=== PATIENT | female | born 1960 | race Caucasian/White ===

== ENCOUNTER 2024-01-14 08:36 | Outpatient (CLI) | payer OTHER, SELFPAY ==
[2024-01-14 09:41] LABS: Basophils Absolute Auto 0.1 K/mm3 (0.0-0.1); Basophils Percent Auto 1.7 % (0.2-1.2); Eosinophils Absolute Auto 0.1 K/mm3 (0-0.3); Hemoglobin 13.5 g/dL (12.0-15.0); Lymphocytes Absolute Auto 0.82 K/mm3 (0.9-3.2); Lymphocytes Percent Auto 27.6 % (18.3-44.2); Mean Corpuscular HGB Conc 33.8 g/dl (32-36); Mean Corpuscular Hemoglobin 31.7 pg (26-34); Mean Corpuscular Volume 93.9 fl (80-100); Mean Platelet Volume 9.6 fl (7.4-10.4); Monocytes Absolute Auto 0.3 K/mm3 (0.1-0.6); Monocytes Percent Auto 10.4 % (2.6-8.5); Neutrophils Absolute Auto 1.7 K/mm3 (1.3-6.7); Neutrophils Percent Auto 58.3 % (45.5-73.1); Platelet Count Result 266 k/mm3 (150-375); Red Blood Count 4.26 M/mm3 (4.2-5.4)
[2024-01-14 09:50] LABS: Alanine Aminotransferase 24 U/L (6-35); Albumin Level 4.5 g/dL (3.5-5.1); Alkaline Phosphatase 82 U/L (38-126); Anion Gap 10 mmol/L (4-12); Aspartate Amino Transferase 44 U/L (14-36); Bilirubin,Total 0.3 mg/dL (0.2-1.3); Blood Urea Nitrogen 17 mg/dL (7-17); Calcium 9.2 mg/dL (8.4-10.2); Carbon Dioxide 26 mmol/L (22-30); Chloride 104 mmol/L (98-107); Cholesterol 245 mg/dL (0-200); Estimated Glomerular Filt Rate > 60; Glucose 90 mg/dL (65-110); HDL Direct 76 mg/dL; Potassium 4.9 mmol/L (3.4-5.0); Sodium 140 mmol/L (137-145); Triglycerides 202 mg/dL (<150)
[2024-01-14 10:01] LABS: LDL Cholesterol Direct 117 mg/dL
[2024-01-14 10:06] LABS: Free T4 Free Thyroxine 1.04 ng/mL (0.78-2.19)
== END 2024-01-14 08:37 | disposition home or self-care (01) ==
LOC: ANHLAB 08:39
PROVIDERS: PCP Family Medicine; Visit Provider Family Medicine
DX: E03.9 Hypothyroidism, unspecified (principal); I10 Essential (primary) hypertension; Z13.220 Encounter for screening for lipoid disorders; G47.39 Other sleep apnea
CPT/HCPCS: 36415; 80048; 80061; 80076; 84439; 84443; 85025

== ENCOUNTER 2024-02-09 12:55 | Outpatient (CLI) | payer OTHER, SELFPAY ==
[2024-02-09 13:44] LABS: Alanine Aminotransferase 19 U/L (6-35); Aspartate Amino Transferase 55 U/L (14-36)
[2024-02-09 16:12] LABS: Hepatitis B Surface Antigen Negative (Negative)
[2024-02-09 16:17] LABS: HAV RESULT Negative (Negative); Hepatitis B Core IgM Result Negative (Negative)
[2024-02-09 16:29] LABS: Hepatitis C Virus Antibody Negative (Negative)
== END 2024-02-09 12:56 | disposition home or self-care (01) ==
PROVIDERS: PCP Family Medicine; Visit Provider Physician Assistant Medical
DX: E78.5 Hyperlipidemia, unspecified (principal); B35.1 Tinea unguium; R74.01 Elevation of levels of liver transaminase levels; R79.89 Other specified abnormal findings of blood chemistry
CPT/HCPCS: 36415; 80074; 84450; 84460

== ENCOUNTER 2024-02-10 08:14 | Outpatient (CLI) | payer OTHER, SELFPAY ==
--- NOTE | ~2024-02-10 | US_ITS ---
EXAM: ABDOMEN ULTRASOUND HISTORY: R79.89 - Other specified abnormal findings of blood chemi... COMPARISON: 02/01/2011 FINDINGS: LIVER: The liver demonstrates geographic areas of fatty infiltration. The portal vein is diminutive but patent and demonstrates hepatopedal flow. GALLBLADDER: Surgically absent. BILE DUCTS: Common bile duct measures 8.5mm, not abnormal postcholecystectomy. No intrahepatic biliary ductal dilatation. PANCREAS: Limited evaluation of the pancreas secondary to overlying bowel gas SPLEEN: The spleen is unremarkable in echogenicity and size measuring 7.8cm in longitudinal dimension . RIGHT KIDNEY: 9.8cm in length. No hydronephrosis or bulky renal calculi. Well-circumscribed anechoic avascular foci, consistent with simple cysts for which no further follow- up is needed. LEFT KIDNEY: 9.4cm in length. No hydronephrosis or renal calculi. Well-circumscribed anechoic avascular foci, consistent with simple cysts for which no further follow- up is needed. VASCULATURE : Submitted images including the abdominal aorta are unremarkable The IVC is patent. IMPRESSION: Geographic areas of fatty infiltration within the liver. Simple cysts within the bilateral kidneys for which no further follow-up is needed. Evaluation of the pancreas is limited by overlying bowel gas. Reviewed, dictated and finalized at location A. IMPRESSION: Geographic areas of fatty infiltration within the liver. Simple cysts within the bilateral kidneys for which no further follow-up is nee ded. Evaluation of the pancreas is limited by overlying bowel gas.
== END 2024-02-10 08:15 | disposition home or self-care (01) ==
LOC: MICIMG 08:15
PROVIDERS: PCP Family Medicine; Visit Provider Physician Assistant Medical
DX: R79.89 Other specified abnormal findings of blood chemistry (principal); N28.1 Cyst of kidney, acquired
CPT/HCPCS: 76700

== ENCOUNTER 2024-02-17 10:55 | Outpatient (CLI) | payer OTHER, SELFPAY ==
[2024-02-17 12:01] LABS: Alanine Aminotransferase 19 U/L (6-35); Albumin Level 4.6 g/dL (3.5-5.1); Alkaline Phosphatase 86 U/L (38-126); Aspartate Amino Transferase 44 U/L (14-36); Bilirubin,Total 0.3 mg/dL (0.2-1.3)
== END 2024-02-17 10:56 | disposition home or self-care (01) ==
LOC: ANHLAB 10:56
PROVIDERS: PCP Family Medicine; Visit Provider Nurse Practitioner Adult Health
DX: R74.01 Elevation of levels of liver transaminase levels (principal)
CPT/HCPCS: 36415; 80076

== ENCOUNTER 2024-04-29 12:50 | Emergency (ER) | payer OTHER, SELFPAY ==
[2024-04-29 13:13] VITALS: BP 146/81; PULSE 82; RESP 16; TEMP 36.4; O2SAT 98
--- NOTE | 2024-04-29 13:45 | ED_ITS ---
HPI - URI/Sore Throat General Chief Complaint: Upper Respiratory Infection Stated Complaint: congestion,sore throat,cough Time Seen by Provider: 04/29/24 13:20 Source: patient Mode of arrival: ambulatory Limitations: no limitations History of Present Illness HPI Narrative: Erica is a 63-year-old female patient presenting to the clinic today with complaints of congestion, sore throat, cough, and chest congestion times 5-6 days. She denies any known fever, chills, or body aches. Denies any chest pain or shortness of breath. Has had COVID exposure. MD elicited complaint: sore throat and nasal congestion Related Data Home Medications ?Medication ?Instructions ?Recorded ?Confirmed ?Last Taken ?Type immune glob G 40 gram/400 See Rx Instructions .Route .COMPLEX 09/19/20 02/11/24 Unknown History mL(10%)-gly-IgA ave 46 mcg/mL injection soln (Gamunex-C) rituximab 10 mg/mL 700 mg IV .every 10 weeks 06/17/23 02/11/24 Unknown History concentrate,intravenous Allergies Allergy/AdvReac Type Severity Reaction Status Date / Time No Known Allergies Allergy Verified 02/11/24 08:52 Review of Systems Review of Systems: Pertinent positives per HPI. Patient denies any fever, chills, rash, headache, visual changes, dizziness, shortness of breath, chest pain, palpitations, nausea, vomiting, diarrhea, constipation, abdominal pain, or any urinary issues. [facility] Past Medical History Medical History Fatty liver Onychomycosis Elevated AST (SGOT) Lipoma of left thigh Immune myopathy Sinusitis, acute Viral URI with cough Trigger finger Compartment syndrome Viral upper respiratory infection Mass of left thigh Lipoma of left lower extremity Lateral epicondylitis of right elbow Anxiety disorder, unspecified Essential hypertension Hyperlipidemia, unspecified Hypothyroidism, unspecified Tendon nodule Trigger finger, left ring finger Ulcer of genital labia Bilateral chronic knee pain Surgical History Surgical History H/O rotator cuff surgery H/O: hysterectomy Family History Family History Mother Hypertension Cerebrovascular accident Family history of heart disease in male family member before age 55 Family history of Alzheimer's disease Sibling Family history of throat cancer Family history of thyroid disease Family history of diabetes mellitus in first degree relative Father Family history of Parkinson's disease COPD (chronic obstructive pulmonary disease) Other Diabetes mellitus Family history of elevated blood lipids Social History Social History Smoking status: Never smoker Second hand tobacco smoke exposure: Yes Alcohol intake: current Substance use: never Substance use type: does not use Do You Feel Safe in your Home?: Yes Lack of Transportation: No Lack of Food: Never True Current Housing: I Have Housing Concerned About Future Housing: No Difficulty Paying Gas/Electric Bills: No Difficulty Paying for Meds: No Currently Unemployed: No Education: Associate Degree Difficulty w/ Childcare or Family Care: No Living arrangements: with family Occupation/Education: retired 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 There is no relevant family history pertinent to the patient complaint. Exam Narrative: General: Well-developed, well nourished, in no apparent distress Head: Normocephalic, atraumatic Eyes: Pupils equally round and reactive to light bilaterally, EOM intact, sclera and conjunctive clear, no discharge, lids normal Ears: TMs intact and clear, ear canals clear, no drainage, grossly hearing normal. Nose: Nares patent, clear nasal discharge, no inflammation, no sinus tenderness. Mouth: Oral pharynx without lesions or masses, good dentition, MMM. Postnasal drip Neck: Supple, trachea midline, no enlargement of anterior or posterior cervical nodes, no thyroid masses or goiter palpable. Cardio: Regular rate and rhythm, s1 and s2 normal, no murmur appreciated. Resp: Clear to auscultation bilaterally, no rhonchi, rales, wheezing or rubs Course Course Emergency Course: Portions of this record may have been created with voice recognition software. Level of Care: Express Care Visit Vital Signs Vital signs: Vital Signs Temperature 36.4 C 04/29/24 13:13 Pulse Rate 82 04/29/24 13:13 Respiratory Rate 16 04/29/24 13:13 Blood Pressure 146/81 H 04/29/24 13:13 Pulse Oximetry 98 04/29/24 13:13 Temperature 36.4 C 04/29/24 13:13 Pulse Rate 82 04/29/24 13:13 Respiratory Rate 16 04/29/24 13:13 Blood Pressure 146/81 H 04/29/24 13:13 Pulse Oximetry 98 04/29/24 13:13 Vital signs reviewed MDM - URI/Sore Throat MDM Narrative Medical decision making narrative: At the time of visit patient is resting comfortably on the exam table. Patient appears to be nontoxic. Labs: COVID was positive and influenza testing was negative in the clinic today. Plan: Patient has COVID-19. May take Tessalon Perles for cough. Supportive measures were discussed with the patient and they voiced understanding discharge instructions and agrees to treatment plan. Return precautions reviewed Differential Diagnosis Differential diagnosis: Likely upper respiratory infection, otitis media, sinusitis, viral infection, bronchitis, influenza, pharyngitis and other (COVID) Lab Data Labs: Lab Results 04/29/24 Range/Units 13:49 POC Influenza A Ag Negative (Negative) POC Influenza B Ag Negative (Negative) POC SARS CoV-2 Ag Positive (Negative) Discharge Plan Discharge Clinical Impression: COVID-19 Patient Disposition: Home, Self-Care Condition: Stable Instructions: Antibiotic Form, How to Recover from COVID-19 at Home (ED) Additional Instructions: COVID testing is positive in the clinic today May take DayQuil/NyQuil for cold/flu symptoms. Increase fluids and stay well hydrated Tylenol/motrin for pain/fever Flonase and OTC antihistamines as directed Vicks vapor rub to open sinuses Sinus rinses for congestion Cepacol spray, cough drops, throat lozenges, warm tea with honey/lemon, gargle salt water to soothe throat BRAT diet for diarrhea Clear liquids x 24 hours then advance as tolerated for nausea/vomiting Go to the ED if you develop a worsening in your condition- high fever not controlled by Tylenol or Motrin, dehydration, weakness, lethargy, shortness of breath, or chest pain. Follow up with your PCP in 3-5 days if symptoms persist. Patient Language: Bulgarian Prescriptions: New benzonatate 200 mg capsule 200 mg PO TID 7 Days Qty: 21 0RF No Action Gamunex-C 40 gram/400 mL (10 %) solution See Rx Instructions .ROUTE .COMPLEX Rx Instructions: iv every 6 weeks; meclizine 25 mg tablet 25 mg PO TID PRN (Reason: dizziness) Qty: 30 0RF rituximab 10 mg/mL concentrate 700 mg IV .every 10 weeks estradiol 0.5 mg tablet 0.5 mg PO DAILY Qty: 90 0RF lisinopril 10 mg tablet See Rx Instructions .ROUTE .COMPLEX Qty: 90 3RF Dose Instruction: TAKE ONE TABLET BY MOUTH EVERY DAY Rx Instructions: TAKE ONE TABLET BY MOUTH EVERY DAY verapamil 240 mg tablet extended release 240 mg PO DAILY Qty: 90 1RF lamotrigine 200 mg tablet See Rx Instructions .ROUTE .COMPLEX Qty: 180 1RF Dose Instruction: TAKE 1 TABLET BY MOUTH TWO TIMES A DAY Rx Instructions: TAKE 1 TABLET BY MOUTH TWO TIMES A DAY diclofenac sodium 50 mg tablet,delayed release (DR/EC) See Rx Instructions .ROUTE .COMPLEX Qty: 180 1RF Dose Instruction: TAKE ONE TABLET BY MOUTH TWICE A DAY Rx Instructions: TAKE ONE TABLET BY MOUTH TWICE A DAY levothyroxine 150 mcg tablet 150 mcg PO DAILY Qty: 90 1RF topiramate 25 mg tablet See Rx Instructions .ROUTE .COMPLEX Qty: 180 1RF Dose Instruction: TAKE 1 TABLET BY MOUTH TWO TIMES A DAY Rx Instructions: TAKE 1 TABLET BY MOUTH TWO TIMES A DAY oxycodone 5 mg tablet 5 mg PO Q6H PRN (Reason: pain) Qty: 20 0RF buspirone 10 mg tablet 10 mg PO BID Qty: 60 5RF escitalopram oxalate 20 mg tablet 20 mg PO DAILY Qty: 90 0RF Follow-up/Referrals: Karthik Shah MD [Primary Care Provider] - Time of Disposition: 13:45 Quality NIHSS Nursing Documentation ED NIHSS nursing documentation: reviewed/agree
[2024-04-29 13:51] LABS: EDCOVIDSCREEN Positive (Negative); EDINFLUASCREEN Negative (Negative); EDINFLUBSCREEN Negative (Negative)
== END 2024-04-29 14:00 | disposition home or self-care (01) ==
PROVIDERS: Emergency Provider Nurse Practitioner Family; PCP Family Medicine
DX: U07.1 COVID-19 (principal); I10 Essential (primary) hypertension; E78.5 Hyperlipidemia, unspecified; E03.9 Hypothyroidism, unspecified; K76.0 Fatty (change of) liver, not elsewhere classified
CPT/HCPCS: 87426; 87804; 99213; G0463

== ENCOUNTER 2024-06-17 11:56 | Outpatient (CLI) | payer OTHER, SELFPAY ==
--- NOTE | ~2024-06-17 | XR_ITS ---
EXAMINATION: XR cervical spine min 6V DATE: 06/17/2024 12:42 INDICATION: Radiculopathy, cervical region. TECHNIQUE: 8 views of cervical spine including flexion and extension views were obtained. COMPARISON: Cervical spine radiographs 06/05/2015 FINDINGS: There is 5 degrees dextrocurvature of cervicothoracic spine. There is mild kyphosis of cerv ical spine. Vertebral body heights are normal. Intervertebral disc heights are normal. There is no ab normal motion on flexion or extension. There is multilevel mild facet joint osteoarthritis. On the le ft, there is mild neural foraminal stenosis at C5-C6. No central canal stenosis or prevertebral soft tissue swelling. IMPRESSION: 1. Mild cervical spondylosis. Reviewed, dictated and finalized at location A. LDER PUNCHER
--- OUTSIDE RECORDS SUMMARY | 2024-06-17 12:00 | XMS_ITS | Referral Summary ---
Author Organization [facility] Address [address] [place] [address] Care Team Providers Care Fur Sorter Name Role Phone Karthik Shah MD Primary Care Provider [phone] Source Comments [facility],non-owned Affiliates and Associated Physician Practices is amultiple site organization consisting of ambulatory clinics and hospital sitesin [place], [place], [place] and [place]. This disclosure is being madepursuant to the Care Everywhere program and may not contain all information available regarding this patient. Last updated 18.[facility] Allergies No known active allergies Medications * Be aware that medications may not be up to date on this document. Alwaysverify current medications with the patient. Medication Sig Dispensed Refills Start Date End Date Status topiramate (TOPAMAX) 25 MG tablet Take 25 mg by mouth 2 times daily. Active lamoTRIgine (LAMICTAL) 200 MG tablet Take 200 mg by mouth 2 times daily. Active citalopram (CELEXA) 40 MG tablet Take 40 mg by mouth once daily. Active estradiol (ESTRACE) 0.5 MG tablet Take 0.5 mg by mouth once daily. Active atorvastatin (LIPITOR) 20 MG tablet Take 20 mg by mouth at bedtime. Active SUMAtriptan (IMITREX) 100 MG tablet Take 100 mg by mouth as needed for Migraine. Active thyroid (ARMOUR THYROID) 90 MG tablet Take 90 mg by mouth once daily. Active verapamil CR (CALAN SR) 240 MG tablet Take 240 mg by mouth daily with breakfast. Active Misc. Devices (CRUTCHES) Use as directed. Given in 04/12/2014 Active Additional Information Patient not taking.Reported on 06/12/2019 Immunizations Name Administration Dates Next Due TDAP (7yrs+) 04/12/2014 Social History Tobacco Use Types Packs/Day Years Used Date Smoking Tobacco: Never Smokeless Tobacco: Never Alcohol Use Standard Drinks/Week Comments Not Asked 0 (1 standard drink = 0.6 oz pur e alcohol) Sex and Gender Information Value Date Recorded Sex Assigned at Not on file Gender Identity Not on file Sexual Orientation Not on file Last Filed Vital Signs Vital Sign Reading Time Taken Comments Blood Pressure 128/80 06/12/2019 10:45 AM BRAILLE TRANSCRIBER Pulse 79 06/12/2019 10:45 AM BRAILLE [employer]CRIBER Temperature 37 C (98.6 F) 06/12/2019 10:45 AM BRAILLE [employer]CRIBER Respiratory Rate 16 06/12/2019 10:45 AM [employer]RAILLE TRANSCRIBER Oxygen Saturation 99% 06/12/2019 10:45 AM BRAILLE TRANSCRIBER Inhaled Oxygen Concentration - - Weight 75.8 kg (167 lb) 06/12/2019 10:45 AM BRAILLE [employer]CRIBER Height 154.9 cm (5' 1 ) 06/12/2019 10:45 AM BRAILLE TR[employer]CRIBER Body Mass Index 31.55 06/12/2019 10:45 AM BRAILLE [employer]CRIBER Plan of Treatment Not on file Care Teams Fur Sorter Relationship Specialty Start Date End Date Karthik Shah MD [address] [place] [id number] PCP - General Family Medicine 04/12/14
--- OUTSIDE RECORDS SUMMARY | 2024-06-17 12:00 | XMS_ITS | Referral Summary ---
Author Organization [facility] Address [address] [place] [address] Care Team Providers Care Therapy Director Name Role Phone Yaima Munoz MD Unavailable [phone] Karthik Shah MD Primary Care Provider [phone] Stephanie Rodríguez MD Unavailable [phone] Encounters Date Type Department Care Team Description 06/17/2024 Orders Only [facility] [address] [place] [address] [phone] Halina Burt, SUSAN 06/11/2024 Orders Only [facility] [address] [place] [address] [phone] Joseph Strong, SUSAN 06/09/2024 7:30 AM CHART COLLECTOR Infusion [facility] [address] [place] [address] [phone] Immune myopathy (Primary Dx) 06/08/2024 8:00 AM CHART COLLECTOR Infusion [facility] [address] [place] [address] [phone] Immune myopathy (Primary Dx) 05/24/2024 Orders Only [facility] [address] [place] [address] [phone] Jamaica Glass, SUSAN 05/19/2024 Orders Only [facility] [address] [place] [phone] Jamaica Glass, RN 05/14/2024 Orders Only [facility] Neuro [facility]cle [address] [facility] Advanced Medicine 6th [place] [phone] Yaima Munoz MD 05/14/2024 7:30 AM CHART COLLECTOR Infusion [facility] Out[facility]fusion [facility] [address] [facility] [address] [place] [phone] Immune myopathy (Primary Dx) 05/13/2024 7:30 AM CHART COLLECTOR Infusion [facility] [address] [place] [address] [address] [place] [phone] Immune myopathy (Primary Dx) 05/04/2024 Orders Only [facility] [address] [place] [address] [phone] Jamaica Glass, RN 04/16/2024 8:00 AM CHART COLLECTOR Infusion [facility] [address] [place] [address] [phone] Immune myopathy (Primary Dx) 04/15/2024 7:30 AM CHART COLLECTOR Infusion [facility] [address] [place] [address] [phone] Immune myopathy (Primary Dx) 04/09/2024 11:00 AM CHART COLLECTOR Lab [facility] Advanced [facility] [address] [place] [phone] Immune myopathy; High risk medications (not anticoagulants) long-term use 04/09/2024 9:00 AM CHART COLLECTOR Office Visit [facility] Neuro [facility]cle [address] [facility] Medicine 6th [place] [phone] Yaima Mnuoz MD High risk medications (not anticoagulants) long-term use (Primary Dx); Immune myopathy; Long-term current use of high risk medication other than anticoagulant 04/07/2024 7:30 AM CHART COLLECTOR Infusion [facility] [address] [place] [address] [address] [place] [phone] Immune myopathy (Primary Dx) 03/18/2024 8:00 AM [facility] Infusion [facility] Out[facility]fusion [facility] [address] [facility] [address] [place] [phone] Immune myopathy (Primary Dx) 03/17/2024 8:00 AM [facility] Out[facility]fusion [facility] [address] [facility] [address] [place] [phone] Immune myopathy (Primary Dx) from Last 3 Months Allergies No known active allergies Medications lamoTRIgine (LaMICtal) 200 mg tablet take 1 tablet by oral route 2 times every day 0 0 6 Active levothyroxine (SYNTHROID, LEVOTHROID) 150 mcg tablet take 1 tablet by oral route every day 0 0 6 Active multivitamin tablet tablet take 1 tablet by oral route every day with food 0 0 6 Active topiramate (TOPAMAX) 25 mg tablet take 1 Tablet by oral route 2 times every day in the morning and evening 0 0 6 Active traMADol (ULTRAM) 50 mg tablet take 1 tablet by oral route every 6 hours as needed 0 0 6 Active verapamil SR (CALAN SR) 240 mg CR tablet Take 1 tablet (240 mg total) by mouth Active lisinopril (PRINIVIL,ZESTR IL) 10 mg tablet TK 1 T PO QD 0 9 Active escitalopram (LEXAPRO) 20 mg tablet Take 1 tablet (20 mg total) by mouth daily Active diclofenac sodium (VOLTAREN) 1 % gel 2 Active estradioL (ESTRACE) 0.5 mg tablet 2 Active meclizine (ANTIVERT) 25 mg tablet TAKE 1 TABLET BY MOUTH TWICE DAILY NEEDED FOR DIZZINESS [address] (VOLTAREN) 50 mg EC tablet 2 Active oxyCODONE (ROXICODONE) 5 mg immediate release tablet Take by mouth every 6 (six) hours as needed 3 Active hydrOXYzine (ATARAX) 25 mg tablet Take 1 tablet (25 mg total) by mouth 3 (three) times a day as needed for itching Active dicyclomine (BENTYL) 20 mg tablet Take 1 tablet (20 mg total) by mouth every 6 (six) hours 3 Active busPIRone (BUSPAR) 10 mg tablet Take 1 tablet (10 mg total) by mouth 2 (two) times a day 4 Active Active Problems Problem Noted Date Diagnosed Date Weakness of extremity 06/09/2023 Long-term current use of hig h risk medication other than anticoagulant 08/08/2022 Trigger middle finger of left hand 06/12/2018 Trigger middle finger of right hand 02/06/2018 Trigger finger, acquired 10/24/2017 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 - EMG/nerve conduction studies 2016: mild irritable myopathy based on increased exertional activity in proximal leg muscles and mild myopathic motor units in proximal arm muscles - muscle biopsy of the right deltoid: probable immune myopathy with an area of perifascicular fiber atrophy and mildly increased numbers of large alkaline phosphatase, positive endomysial capillaries. In addition, scattered necrotic or immature muscle fibers were seen. Treatment: Initially IV steroids, on IVIG since July 2016; Rituximab added 05/2023 Sarcoidosis 10/27/2015 Overview (08/08/2016): Sarcoidosis Bipolar affective disorder 10/05/2015 Overview (08/09/2016): Bipolar affective disorder Migraine 10/05/2015 Overview (08/09/2016): Migraine headache Hypothyroidism 10/05/2015 Overview (08/09/2016): Hypothyroidism Fibrositis 10/05/2015 Overview (08/09/2016): Fibromyalgia Immunizations Name Administration Dates Next Due Influenza, Quadrivalent, Spl it, Preservative Free, Intramuscular 03/05/2015 Influenza, Unspecified 03/05/2023 Tdap 04/12/2014 Social History Tobacco Use Types Packs/Day Years Used Date Smoking Tobacco: Never Smokeless Tobacco: Never Tobacco Cessation:Counseling Given: Not Answered Alcohol Use Standard Drinks/Week Comments Yes 1 (1 standard drink = 0.6 oz pur e alcohol) per month PHQ-2 Answer Date Recorded PHQ-2 Total Score (If total score is 3 or more points, staff should administer the PHQ-9) 0 07/26/2020 Hunger Vital Sign Answer Date Recorded Within the past 12 months, y ou worried that your food would run out before you got the money to buy more. Never true 06/09/19 25 Within the past 12 months, t he food you bought just didn't last and you didn't have money to get more. Never true 06/09/2024 Personal Safety Answer Date Recorded Have you ever been in or are you currently in a harmful physical or emotional relationship or is someone making you feel afraid or unsafe? Denies 06/09/2024 Comments No Sex and Gender Information Value Date Recorded Sex Assigned at Not on file Legal Sex Female 2:12 AM CHART COLLECTOR Gender Identity Not on file Sexual Orientation Not on file 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 Not on file Not on file Last Filed Vital Signs Vital Sign Reading Time Taken Comments Blood Pressure 155/80 06/09/2024 11:05 AM CHART COLLECTOR Pulse 60 06/09/2024 11:05 AM CHART COLLECTOR Temperature 36.6 C (97.8 F) 06/09/2024 7:18 AM CHART COLLECTOR Respiratory Rate 18 06/09/2024 7:18 AM CHART COLLECTOR Oxygen Saturation 95% 06/09/2024 11:05 AM CHART COLLECTOR Inhaled Oxygen Concentration - - Weight 80.3 kg (177 lb) 06/09/2024 7:18 AM CHART COLLECTOR Height 157.5 cm (5' 2 ) 05/13/2024 7:27 AM CHART COLLECTOR Body Mass Index 32.37 05/13/2024 7:27 AM CHART COLLECTOR Plan of Treatment Not on file Procedures Procedure Name Priority Date/Time Associated Diagnosis Comments EGFR Routine 04/09/2024 10:23 AM CHART COLLECTOR Immune myopathy High risk medications (not anticoagulants) long-term use DIFFERENTIAL AUTO Routine 04/09/2024 10: 23 AM CHART COLLECTOR Immune myopathy High risk medications (not anticoagulants) long-term use IGM Routine 04/09/2024 10:23 AM CHART COLLECTOR Immune myopathy High risk medications (not anticoagulants) long-term use IGG Routine 04/09/2024 10:23 AM CHART COLLECTOR Immune myopathy High risk medications (not anticoagulants) long-term use IGA Routine 04/09/2024 10:23 AM CHART COLLECTOR Immune myopathy High risk medications (not anticoagulants) long-term use IMMUNE COMPETENCE Routine 04/09/2024 10: 23 AM CHART COLLECTOR Immune myopathy High risk medications (not anticoagulants) long-term use ALDOLASE Routine 04/09/2024 10:23 AM CHART COLLECTOR Immune myopathy High risk medications (not anticoagulants) long-term use CREATINE KINASE (CK), TOTAL Routine 04/09/2024 10:23 AM CHART COLLECTOR Immune myopathy High risk medications (not anticoagulants) long-term use CBC WITH AUTO DIFFERENTIAL Routine 04/09/2024 10:23 AM CHART COLLECTOR Immune myopathy High risk medications (not anticoagulants) long-term use COMPREHENSIVE METABOLIC PANEL Routine 04/09/2024 10:23 AM CHART COLLECTOR Immune myopathy High risk medications (not anticoagulants) long-term use SCREENING MAMMOGRAM BILATERAL W SANJAY Schedule Routine, Read Routine (OP Routine) 06/26/2023 12:39 PM CHART COLLECTOR Screening mammogram, encounter for HEPATITIS PANEL, ACUTE STAT 06/09/2023 10:04 PM CHART COLLECTOR DEXA AXIAL SKELETON BONE DENSITY 1 OR MORE SITES Schedule Routine, Read Routine (OP Routine) 07/22/2018 11:00 AM CDT Encounter for screening for osteoporosis Asymptomatic menopausal state from Last 3 Months or Most Recently Relevant to Health Maintenance Results * eGFR (04/09/2024 10:23 AM CHART COLLECTOR) eGFR 79 >=60 mL/min/1. 73 m2 Comment: Interpretive Data Reference Interval Normal >/= 90 mL/min/1.73m2 Mildly decreased* 60 - 89 mL/min/1.73m2 Mildly to moderately decreased 45 - 59 mL/min/1.73m2 Moderately to severely decreased 30 - 44 mL/min/1.73m2 Severely decreased 15 - 29 mL/min/1.73m2 Kidney Failure < 15 mL/min/1.73m2 *Relative to young adult level Estimated glomerular filtration rate is determined by the 2020 CKD-EPI equation recommended by the National Kidney Foundation (A Unifying Approach to GFR Estimation: Recommendations of the NKF-ASK Task Force on Reassessing the Inclusion of Race in Diagnosing Kidney Disease, JASN 2020). The CKD-EPI equation should not be used for patients with unstable renal function and has not been validated in children and those over 70. Current interpretive data was last reviewed 2021. Blood 04/09/2024 10:2 3 AM CHART COLLECTOR 04/09/2024 11:04 AM CHART COLLECTOR us Yaima Munoz MD LAB BLOOD ORDERABLES Final R esult [facility] Department [place] [address] * (ABNORMAL) Differential, auto (04/09/2024 10:23 AM CHART COLLECTOR) Pathologist [facility] Neutrophil abs 1.8 1.5 - 6.5 K/cumm Imm gran abs 0.0 0.0 - 0.1 K/cumm [facility] Lymphocyte abs 0.7(L) 0.8 - 3.3 K/cumm [facility] Monocyte abs 0.4 0.2 - 0.8 K/cumm [facility] Eosinophil abs 0.0 0.0 - 0.5 K/cumm [facility] Basophil abs 0.0 0.0 - 0.1 K/cumm [facility] Neutrophil pct 61.8 % [facility] Comment: Interpretive Data Percent cell count reference ranges are not reported, since discordance with absolute values may lead to misinterpretation of CBC data. Current Interpretive Data was last revised on 2017. Imm gran pct 0.0 % [facility] Comment: Interpretive Data Percent cell count reference ranges are not reported, since discordance with absolute values may lead to misinterpretation of CBC data. Current Interpretive Data was last revised on 2017. Lymphocyte pct 24.5 % [facility] Comment: Interpretive Data Percent cell count reference ranges are not reported, since discordance with absolute values may lead to misinterpretation of CBC data. Current Interpretive Data was last revised on 2017. Monocyte pct 11.7 % [facility] Comment: Interpretive Data Percent cell count reference ranges are not reported, since discordance with absolute values may lead to misinterpretation of CBC data. Current Interpretive Data was last revised on 2017. Eosinophil pct 0.7 % [facility] Comment: Interpretive Data Percent cell count reference ranges are not reported, since discordance with absolute values may lead to misinterpretation of CBC data. Current Interpretive Data was last revised on 2017. Basophil pct 1.3 % [facility] Comment: Interpretive Data Percent cell count reference ranges are not reported, since discordance with absolute values may lead to misinterpretation of CBC data. Current Interpretive Data was last revised on 2017. Blood 04/09/2024 10:2 3 AM CHART COLLECTOR 04/09/2024 11:04 AM CHART COLLECTOR us Yaima Munoz MD LAB BLOOD ORDERABLES Final R esult [facility] Department [place] [address] * (ABNORMAL) Immune competence (04/09/2024 10:23 AM CHART COLLECTOR) CD3 pct 89(H) 60 - 88 % CD3 Absolute 601(L) 661 - 1,963 cells/mcL [facility] CD4 pct 57 31 - 64 % [facility] CD4 Absolute 380 365 - 1,294 cells/mcL [facility] CD8 pct 32 12 - 40 % [facility] CD8 Absolute 211 187 - 781 cells/mcL [facility] CD19 pct 0(L) 6 - 25 % [facility] CD19 Absolute <25(L) 86 - 488 cells/mcL [facility] Comment:Repeated and verifie d. [id number] pct 10 5 - 25 % [facility] [id number] Absolute 68(L) 76 - 467 cells/mcL [facility] CD4/CD8 ratio 1.8 0.9 - 4.4 [facility] Blood 04/09/2024 10:2 3 AM CHART COLLECTOR 04/09/2024 11:01 AM CHART COLLECTOR Yaima Munoz MD LAB BLOOD ORDERABLES Final R esult [facility] Department [place] [address] * (ABNORMAL) CBC with auto differential (04/09/2024 10:23 AM CHART COLLECTOR) [facility] WBC 3.0(L) 3.8 - 9.9 K/cumm Hgb 12.6 11.9 - 15.5 g/dL [facility] Hct 38.5 35.6 - 45.5 % [facility] Plt 268 150 - 400 K/cumm [facility] MPV 9.7 9.1 - 12.3 fL [facility] RBC 4.15 3.90 - 5.20 M/cumm [facility] MCV 92.8 81.3 - 96.4 fL [facility] MCH 30.4 27.1 - 33.3 pg [facility] MCHC 32.7 32.3 - 35.7 g/dL [facility] RDW CV 13.7 11.1 - 14.9 % [facility] RDW SD 46.5 35.7 - 48.1 fL [facility] NRBC abs 0.00 0.00 - 0.01 K/cumm [facility] Blood 04/09/2024 10:2 3 AM CHART COLLECTOR 04/09/2024 11:04 AM CHART COLLECTOR Yaima Munoz MD LAB BLOOD ORDERABLES Final R esult Performing Organization Address City/[facility] Co de Phone Number [facility] [place] [address] * Aldolase (04/09/2024 10:23 AM CHART COLLECTOR) Pathologist [facility] Aldolase 4.5 0.1 - 8.0 Units/L Blood 04/09/2024 10:2 3 AM CHART COLLECTOR 04/09/2024 11:04 AM CHART COLLECTOR Yaima Munoz MD LAB BLOOD ORDERABLES Final R esult Performing Organization Address [facility] [employer] de Phone Number [facility] [place] [address] * IgA (04/09/2024 10:23 AM CHART COLLECTOR) Pathologist [facility] Immunoglobulin A 81 70 - 400 mg/dL Blood 04/09/2024 10:2 3 AM CHART COLLECTOR 04/09/2024 11:04 AM CHART COLLECTOR Yaima Munoz MD LAB BLOOD ORDERABLES Final R esult Performing Organization Address [facility] de Phone Number [facility] [place] [address] * IgM (04/09/2024 10:23 AM CHART COLLECTOR) Pathologist [facility] Immunoglobulin M 63 40 - 230 mg/dL Blood 04/09/2024 10:2 3 AM CHART COLLECTOR 04/09/2024 11:04 AM CHART COLLECTOR Yaima Munoz MD LAB BLOOD ORDERABLES Final R esult Performing Organization Address [facility] de Phone Number [facility] [place] [address] * IgG (04/09/2024 10:23 AM CHART COLLECTOR) Pathologist [facility] Immunoglobulin G 1,511 700 - 1,600 mg/dL Blood 04/09/2024 10:2 3 AM CHART COLLECTOR 04/09/2024 11:04 AM CHART COLLECTOR us Yaima Munoz MD LAB BLOOD ORDERABLES Final R esult Performing Organization Address [facility] de Phone Number [facility] [place] [address] * Creatine kinase (CK), total (04/09/2024 10:23 AM CHART COLLECTOR) [facility] CK 153 30 - 200 Units/L Blood 04/09/2024 10:2 3 AM CHART COLLECTOR 04/09/2024 11:04 AM CHART COLLECTOR Yaima Munoz MD LAB BLOOD ORDERABLES Final R esult Performing Organization Address [facility] de Phone Number [facility] [place] [address] * (ABNORMAL) Comprehensive metabolic panel (04/09/2024 10:23 AM CHART COLLECTOR) [facility] Sodium 143 135 - 145 mmol/L Potassium, pl 5.0(H) 3.3 - 4.9 mmol/L [facility] Chloride 109 97 - 110 mmol/L [facility] CO2 27 22 - 32 mmol/L [facility] Anion gap 7 2 - 15 mmol/L [facility] BUN 19 6 - 25 mg/dL [facility] Creatinine 0.82 0.60 - 1.10 mg/dL [facility] Glucose 94 70 - 199 mg/dL [facility] Comment: Interpretive Data Fasting glucose >/= 126 mg/dl is diagnostic for diabetes. Fasting is defined as no caloric intake for at least 8 hours. Fasting glucose between 100 mg/dl to 125 mg/dl is diagnostic of prediabetes. In a patient with classic symptoms of hyperglycemia or hyperglycemic crisis, a random glucose >/= 200 mg/dl is diagnostic for diabetes. In the absence of unequivocal hyperglycemia, results should be confirmed by repeat testing. The classification and Diagnosis of Diabetes Diabetes Care 2021; 46: S19-S40. Current interpretive data was last revised 2022. Calcium 9.6 8.5 - 10.3 mg/dL [facility] Bilirubin, total 0.2 0.1 - 1.2 mg/dL [facility] Protein, pl 8.1 6.5 - 8.5 g/dL [facility] Albumin 4.5 3.5 - 5.0 g/dL [facility] Alk phos 109 40 - 130 Units/L [facility] ALT 17 7 - 45 Units/L [facility] AST 32 10 - 45 Units/L [facility] Blood 04/09/2024 10:2 3 AM CHART COLLECTOR 04/09/2024 11:04 AM CHART COLLECTOR us Yaima Munoz MD LAB BLOOD ORDERABLES Final R esult [facility] Department [place] [address] * Screening Mammogram Bilateral W Sanjay (06/26/2023 12:39 PM CHART COLLECTOR) Anatomical Region Laterality Modality Breast Bilateral Mammography Narrative 07/07/2023 1:13 PM CHART COLLECTOR Mammogram Technique: Bilateral Digital Breast Tomosynthesis, Bilateral C-view 2D Screening mammogram. Views obtained: bilateral craniocaudal and bilateral mediolateral oblique. Computer Aided Detection was performed. Mammogram Findings: The present examination has been compared to prior imaging studies performed at [facility] on 06/02/2020, 06/05/2021 and 05/28/2022. There are scattered areas of fibroglandular density. There is no suspicious abnormality in either breast. Impression: There is no mammographic evidence of malignancy. Annual screening mammography is recommended. OVERALL FINAL ASSESSMENT: BI-RADS CATEGORY 1: Negative. Procedure Note Gilda Padilla MD - 07/07/2023 Mammogram Technique: Bilateral Digital Breast Tomosynthesis, Bilateral C-view 2D Screening mammogram. Views obtained: bilateral craniocaudal and bilateral mediolateral oblique. Computer Aided Detection was performed. Mammogram Findings: The present examination has been compared to prior imaging studies performed at [facility] on 06/02/2020, 06/05/2021 and 05/28/2022. There are scattered areas of fibroglandular density. There is no suspicious abnormality in either breast. Impression: There is no mammographic evidence of malignancy. Annual screening mammography is recommended. OVERALL FINAL ASSESSMENT: BI-RADS CATEGORY 1: Negative. us Self Screening Mammogram IMG MAMMO PROCEDURES Fi nal Result * Hepatitis panel, acute Blood (06/09/2023 10:04 PM CHART COLLECTOR) Hep A IgM Nonreactive Nonreactive [facility] Hep B core IgM Nonreactive Nonreactive [facility] Hep C Ab Nonreactive Nonreactive [facility] Comment:Antibodies to HCV no t detected. Does NOT exclude the possibility of recent exposure to HCV. Current interpretive data was last revised on 22 HepBsAg Nonreactive Nonreactive [facility] Blood 06/09/2023 10:0 4 PM CHART COLLECTOR 06/09/2023 10:15 PM CHART COLLECTOR Diogenes Salomon MD PhD LAB MICROBIOLOGY - GENERAL ORDERABLES Final Result [facility] Department [place] [address] * Dexa Axial Skeleton Bone Density 1 or 2 Site (07/22/2018 11:00 AM CDT) Anatomical Region Laterality Modality Body N/A Digital Radiogra phy 07/22/2018 2:13 PM CDT Impressions 07/22/2018 3:51 PM CDT 1. The bone mineral density of the lumbar spine is normal. 2. The bone mineral density of the left femoral neck is mildly decreased. 3. The bone mineral density of the left total hip is normal. 4. Overall, the above findings are diagnostic of low bone mass (osteopenia) by WHO criteria. 5. Calculation of fracture risk using the FRAX model is not appropriate in certain settings. It was not performed in this patient because the patient met the following condition(s): Interfering medications. General comments regarding interpretation of bone density measurements: A) In children, premenopausal woman and males under age 50 not at increased risk for fractures only Z-scores, not T-scores are used to indicate risk. A Z-score above -2.0 is defined as within the expected range for age and Z-score at or less than -2.0 is below the expected range for age . A Z-score below the expected range for age in a patient with recent fractures and/or chronic corticosteroid treatment is consistent with a diagnosis of osteoporosis. B) In post menopausal women and males over 50, comparison of the measured bone mineral density with the average value in young normal subjects (the T-score ) has been found to be useful in assessing fracture risk. Fracture risk approximately doubles for each 1.0 standard deviation (SD) in individual's hip or spine bone mineral density is below the average value of young normal subjects. The World Health Organization (WHO) has defined T-scores of -1.0 to -2.5 as diagnostic of low bone mass (OSTEOPENIA), and T-scores of -2.5 or lower to be diagnostic of OSTEOPOROSIS, based on the site of lowest bone density. Note that there will be a change in reporting format and reference databases as patients move from the younger population (group A) to the older population (group B) The National Osteoporosis Foundation (www.nof.org) recommends adequate intake of calcium and vitamin D and regular weight-bearing exercise in all patients. They recommend pharmacologic treatment in postmenopausal women and men age 50 and older presenting with any of the followin) Osteoporosis, after appropriate evaluation to exclude secondary causes. 2) A hip or vertebral (clinical or radiographic) fracture, regardless of the bone density. 3) Low bone mass (Osteopenia) and one or more of: other prior fractures, secondary causes associated with high risk of fracture (such as glucocorticoid use or total immobilization), or computed high risk of fracture (10-yr probability of hip fracture >= 3% or a 10-yr probability of any major osteoporosis-related fracture >= 20% based on the [place].-adapted WHO algorithm), available at http://www.shef.ac.uk/FRAX). Dictated by: Anirudh Cantu M.D. The radiology attending physician has personally reviewed this study, and had reviewed and/or edited this written report and agrees with it. Electronically signed by: Danielle Trent M.D. Narrative 07/22/2018 3:51 PM CDT BONE DENSITOMETRY OF THE SPINE AND HIP DATE OF STUDY: 07/22/2018 HISTORY: 57-year-old postmenopausal woman with hyperthyroidism and hysterectomy at age 28 with ovaries left intact who presents for osteoporosis screening. She is being treated with calcium, vitamin D, and estrogen hormone replacement therapy. She reports prior long-term prednisone therapy. Evaluate bone mineral density. Additional risk factors for fracture: Hyperthyroidism. FINDINGS (SPINE): The bone mineral density of L1-L4 was assessed by dual-energy x-ray absorptiometry. The average bone mineral density within this region is 1.057 gm/sq-cm. This is 1.5 standard deviations above the mean of the average bone mineral density for age- and gender-matched subjects (the Z-score). It is 0.1 standard deviations above the mean peak bone mineral density in young adults (the T-score). FINDINGS (FEMORAL NECK): The bone mineral density of the left femoral neck was assessed by dual-energy x-ray absorptiometry. The average bone mineral density within the femoral neck region is 0.720 gm/sq-cm. This is 0.1 standard deviations above the mean of the average bone mineral density for age- and gender-matched subjects (the Z-score). It is 1.2 standard deviations below the mean peak bone mineral density in young adults (the T-score). FINDINGS (TOTAL HIP): The bone mineral density of the left hip was assessed by dual-energy x-ray absorptiometry. The average bone mineral density within the total hip region is 0.866 gm/sq-cm. This is 0.3 standard deviations above the mean of the average bone mineral density for age- and gender-matched subjects (the Z-score). It is 0.6 standard deviations below the mean peak bone mineral density in young adults (the T-score). SUMMARY OF CURRENT RESULTS: Region BMD T-score Z-score AP Spine (L1-L4) 1.057 0.1 1.5 Femoral Neck (Left) 0.720 -1.2 0.1 Total Hip (Left) 0.866 -0.6 0.3 Procedure Note Danielle Trent MD - 07/22/2018 BONE DENSITOMETRY OF THE SPINE AND HIP DATE OF STUDY: 07/22/2018 HISTORY: 57-year-old postmenopausal woman with hyperthyroidism and hysterectomy at age 28 with ovaries left intact who presents for osteoporosis screening. She is being treated with calcium, vitamin D, and estrogen hormone replacement therapy. She reports prior long-term prednisone therapy. Evaluate bone mineral density. Additional risk factors for fracture: Hyperthyroidism. FINDINGS (SPINE): The bone mineral density of L1-L4 was assessed by dual-energy x-ray absorptiometry. The average bone mineral density within this region is 1.057 gm/sq-cm. This is 1.5 standard deviations above the mean of the average bone mineral density for age- and gender-matched subjects (the Z-score). It is 0.1 standard deviations above the mean peak bone mineral density in young adults (the T-score). FINDINGS (FEMORAL NECK): The bone mineral density of the left femoral neck was assessed by dual-energy x-ray absorptiometry. The average bone mineral density within the femoral neck region is 0.720 gm/sq-cm. This is 0.1 standard deviations above the mean of the average bone mineral density for age- and gender-matched subjects (the Z-score). It is 1.2 standard deviations below the mean peak bone mineral density in young adults (the T-score). FINDINGS (TOTAL HIP): The bone mineral density of the left hip was assessed by dual-energy x-ray absorptiometry. The average bone mineral density within the total hip region is 0.866 gm/sq-cm. This is 0.3 standard deviations above the mean of the average bone mineral density for age- and gender-matched subjects (the Z-score). It is 0.6 standard deviations below the mean peak bone mineral density in young adults (the T-score). SUMMARY OF CURRENT RESULTS: Region BMD T-score Z-score AP Spine (L1-L4) 1.057 0.1 1.5 Femoral Neck (Left) 0.720 -1.2 0.1 Total Hip (Left) 0.866 -0.6 0.3 IMPRESSION: 1. The bone mineral density of the lumbar spine is normal. 2. The bone mineral density of the left femoral neck is mildly decreased. 3. The bone mineral density of the left total hip is normal. 4. Overall, the above findings are diagnostic of low bone mass (osteopenia) by WHO criteria. 5. Calculation of fracture risk using the FRAX model is not appropriate in certain settings. It was not performed in this patient because the patient met the following condition(s): Interfering medications. General comments regarding interpretation of bone density measurements: A) In children, premenopausal woman and males under age 50 not at increased risk for fractures only Z-scores, not T-scores are used to indicate risk. A Z-score above -2.0 is defined as within the expected range for age and Z-score at or less than -2.0 is below the expected range for age . A Z-score below the expected range for age in a patient with recent fractures and/or chronic corticosteroid treatment is consistent with a diagnosis of osteoporosis. B) In post menopausal women and males over 50, comparison of the measured bone mineral density with the average value in young normal subjects (the T-score ) has been found to be useful in assessing fracture risk. Fracture risk approximately doubles for each 1.0 standard deviation (SD) in individual's hip or spine bone mineral density is below the average value of young normal subjects. The World Health Organization (WHO) has defined T-scores of -1.0 to -2.5 as diagnostic of low bone mass (OSTEOPENIA), and T-scores of -2.5 or lower to be diagnostic of OSTEOPOROSIS, based on the site of lowest bone density. Note that there will be a change in reporting format and reference databases as patients move from the younger population (group A) to the older population (group B) The National Osteoporosis Foundation (www.nof.org) recommends adequate intake of calcium and vitamin D and regular weight-bearing exercise in all patients. They recommend pharmacologic treatment in postmenopausal women and men age 50 and older presenting with any of the followin) Osteoporosis, after appropriate evaluation to exclude secondary causes. 2) A hip or vertebral (clinical or radiographic) fracture, regardless of the bone density. 3) Low bone mass (Osteopenia) and one or more of: other prior fractures, secondary causes associated with high risk of fracture (such as glucocorticoid use or total immobilization), or computed high risk of fracture (10-yr probability of hip fracture >= 3% or a 10-yr probability of any major osteoporosis-related fracture >= 20% based on the [place].-adapted WHO algorithm), available at http://www.shef.ac.uk/FRAX). Dictated by: Anirudh Cantu M.D. The radiology attending physician has personally reviewed this study, and had reviewed and/or edited this written report and agrees with it. Electronically signed by: Danielle Trent M.D. Sparkle Reilly NP IMG DXA PROCED URES Final Result from Last 3 Months or Most Recently Relevant to Health Maintenance Insurance [facility] ADVANTAGE CHOICE PPO [employer] [facility] [employer] Address: [address] [place] [address] [facility] Advance Directives For more information, please contact: [phone] * Full Code (Latest Code Status on File) Date Activated Date Inactivated Comments 06/09/2023 6:34 PM 06/10/2023 11:15 PM Care Teams Therapy Director Relationship Specialty Start Date End Date Karthik Shah MD [address] [place] [address] PCP - General Family Medicine 06/26/23 Yaima Munoz MD [address] [facility] [address] [place] [address] Consulting Physician Neuromuscular Medicine 05/27/19 Stephanie Rodríguez MD [address] [address] Referring Physician Gynecology 06/26/23
--- OUTSIDE RECORDS SUMMARY | 2024-06-17 12:00 | XMS_ITS | Clinical Summary ---
Author Organization [facility] Address [address] [place] [address] Care Team Providers Care End Finder Twisting Department Name Role Phone Karthik Shah MD Primary Care Provider [phone] Allergies No known active allergies Medications dicyclomine (BENTYL) 20 MG tablet Take 1 tablet (20 mg total) by mouth every 6 (six) hours. 120 tablet 04/16/2023 Active Social History Tobacco Use Types Packs/Day Years Used Date Smoking Tobacco: Never Smokeless Tobacco: Never Tobacco Cessation:Counseling Given: Not Answered Alcohol Use Standard Drinks/Week Comments Yes 0 (1 standard drink = 0.6 oz pur e alcohol) social Comments No Sex and Gender Information Value Date Recorded Sex Assigned at Not on file Legal Sex Female 10:53 PM CDT Gender Identity Not on file Sexual Orientation Not on file Last Filed Vital Signs Vital Sign Reading Time Taken Comments Blood Pressure 140/75 04/16/2023 3:07 PM BOAT HOP Pulse 63 04/16/2023 3:07 PM BOAT HOP Temperature 36.3 C (97.3 F) 04/16/2023 3:07 PM BOAT HOP Respiratory Rate 18 04/16/2023 3:07 PM BOAT HOP Oxygen Saturation 99% 04/16/2023 3:07 PM BOAT HOP Inhaled Oxygen Concentration - - Weight 81.6 kg (180 lb) 04/16/2023 11:37 AM BOAT HOP Height 157.5 cm (5' 2 ) 04/16/2023 11:37 AM BOAT HOP Body Mass Index 32.92 04/16/2023 11:37 AM BOAT HOP Plan of Treatment Health Maintenance Due Date Last Done Comments Colorectal Cancer Screening Colonoscopy (10 Years) 1958 Hepatitis C 1976 Mammogram Screening 1998 Zoster Vaccines (1 of 2) 2008 Dexa Scan (General) 11/07/2023 Pneumococcal Vaccine: 65+ Years (1 of 1 - PCV) 11/07/2023 COVID-19 Vaccine ( season) 2024 04/04/2023, 03/15/2022, 04/13/2021, Additional history exists Influenza Adult (#1) 2024 04/04/2023, 02/25/2022, 03/05/2015 DTaP, Tdap and Td Vaccines (2 - Td or Tdap) 04/12/2024 04/12/2014 RSV Immunization or 60+ Years (1 - 1-dose 75+ series) 2033 Meningococcal B Vaccine Aged Out No l onger eligible based on patient's age to complete this topic Meningococcal Vaccine Aged Out No edgar arabella eligible based on patient's age to complete this topic Pneumococcal Vaccine: Pediatrics (0 to 5 Years) and At-Risk Patients (6 to 64 Years) Aged Out No longer eligible based on patient's age to complete this topic RSV Immunizations Under 20 Months Aged Out No longer eligible based on patient's age to complete this topic Insurance Care Teams End Finder Twisting Department Relationship Specialty Start Date End Date Karthik Shah MD [address] [address] PCP - General 03/31/13
--- OUTSIDE RECORDS SUMMARY | 2024-06-17 12:00 | XMS_ITS | Clinical Summary ---
Author Organization [facility] [employer] Address [address] [place] [place] [address] Care Team Providers Care Diesel Retrofit Installer Name Role Phone Karthik Shah MD Primary Care Provider [phone] Source Comments [employer],non-owned Affiliates and Associated Physician Practices is amultiple site organization consisting of ambulatory clinics and hospital sitesin [place], [place], [place] and [place]. This disclosure is being madepursuant to the Care Everywhere program and may not contain all information available regarding this patient. Last updated 18.[employer] Allergies No known active allergies Medications * [...] Comments Blood Pressure 128/80 06/12/2019 10:45 AM VFX ARTIST Pulse 79 06/12/2019 10:45 AM VFX ARTIST Temperature 37 C (98.6 F) 06/12/2019 10:45 AM VFX ARTIST Respiratory Rate 16 06/12/2019 10:45 AM VFX ARTIST Oxygen Saturation 99% 06/12/2019 10:45 AM VFX ARTIST Inhaled Oxygen Concentration - - Weight 75.8 kg (167 lb) 06/12/2019 10:45 AM VFX ARTIST Height 154.9 cm (5' 1 ) 06/12/2019 10:45 AM VFX ARTIST Body Mass Index 31.55 06/12/2019 10:45 AM VFX ARTIST Plan of Treatment Health Maintenance Due Date Last Done Comments BONE DENSITY TESTING 1960 COLOGUARD (AGES 45-75) - COL ON CA SCREENING 1958 COLON MONITORING 1958 COLONOSCOPY - COLON CA SCREENING 1958 CT COLONOGRAPHY - COLON CA SCREENING 1958 Colorectal Cancer Screening 1958 FIT - COLON CA SCREENING 1958 FLEX SIG - COLON CA SCREENING 1958 MAMMOGRAM 1958 PAP SMEAR 1958 HIV SCREENING 1973 HEPATITIS C SCREENING 11/01/1976 PNEUMOCOCCAL VACCINE 50+ (1 of 1 - PCV) 2008 ZOSTER VACCINE (1 of 2) 2008 SCREENING FOR DIABETES 06/12/2019 COVID-19 VACCINE ( - 2023-2 5 season) 2024 INFLUENZA VACCINE (#1) 2024 DTAP/TDAP/TD VACCINES (2 - T d or Tdap) 04/12/2024 04/12/2014 DEPRESSION SCREENING 05/05/2024 Respiratory Syncytial Virus (RSV) Vaccine Pt: or over 60 yrs (1 - 1-dose 75+ series) 2033 HEPATITIS B VACCINE Aged Out No longe r eligible based on patient's age to complete this topic HIB VACCINE Aged Out No longer eligi ble based on patient's age to complete this topic HPV VACCINE Aged Out No longer eligi ble based on patient's age to complete this topic MENINGOCOCCAL (Group B) VACCINE Aged Out No longer eligible based on patient's age to complete this topic MENINGOCOCCAL VACCINE Aged Out No edgar arabella eligible based on patient's age to complete this topic Care Teams Diesel Retrofit Installer Relationship Specialty Start Date End Date Karthik Shah MD [address] [place] [id number] PCP - General Family Medicine 04/12/14
--- OUTSIDE RECORDS SUMMARY | 2024-06-17 12:00 | XMS_ITS | Encounter Summary ---
Author Organization [facility] Address [address] [place] [address] Care Team Providers Care Presales Senior Specialist Name Role Phone Karthik Shah MD Primary Care Provider [phone] Encounter Details Date Type Department Care Team (Late st Contact Info) Description 08/03/2018 Lab Requisition [facility] [address] [facility] [facility] [place] [id number] Augusta Soriano MD [address] [facility] [address] [place] [address] Social History Tobacco Use Types Packs/Day Years Used Date Smoking Tobacco: Never Alcohol Use Standard Drinks/Week Comments Not Asked 0 (1 standard drink = 0.6 oz pur e alcohol) Sex and Gender Information Value Date Recorded Sex Assigned at Not on file Gender Identity Not on file Sexual Orientation Not on file documented as of this encounter Plan of Treatment Not on file documented as of this encounter Procedures Procedure Name Priority Date/Time Associated Diagnosis Comments DERMATOPATHOLOGY Routine 07/31/2018 12:0 0 AM CDT documented in this encounter Results * DERMATOPATHOLOGY (07/31/2018 12:00 AM CDT) Case Report Dermatopathology Report Case: [id number] Authorizing Provider: Augusta Soriano MD Collected: 07/31/2018 12:00 AM Pathologist: Brian Vallecillo MD Received: 08/03/2018 10:59 AM Specimen: Skin, right calf 9 3:41 PM CDT DERMATOPATHOLOGY LABORATORY Final Diagnosis Specimen A. SKIN, right calf: LICHEN PLANUS-LIKE KERATOSIS (BENIGN LICHENOID KERATOSIS) (L82.1) 3:41 PM CDT DERMATOPATHOLOGY LABORATORY Clinical History LPLK vs BCC. Faxon scaly papule. 3:41 PM CDT DERMATOPATHOLOGY LABORATORY Gross Description Specimen A: Received is one formalin filled container labeled with the patient's name and designated right calf. The specimen consists of a shave measuring [id number]. Jar 0. 3:41 PM CDT DERMATOPATHOLOGY LABORATORY Microscopic Description Specimen A. SKIN, right calf: The epidermis is mildly acanthotic. There is a mild lichenoid infiltrate with vacuolar changes of basilar keratinocytes and scattered necrotic keratinocytes. 3:41 PM CDT DERMATOPATHOLOGY LABORATORY Disclaimer An external and internal positive and negative controls are appropriate for the histochemical, immunohistochemical and immunofluorescence stain(s) in this case (if any), except where stated explicitly. The performance characteristics of the stain(s) cited in this report were developed and its performance characteristic determined by the Dermatopathology Laboratory at [facility], directed by Dr. Irais Vallecillo. These tests need not be, and therefore are not, approved by the [place] Food and Drug Administration. The tests are used for clinical purposes. Billing Codes Specimen Charges Stain Charges 60595 1 3:41 PM CDT DERMATOPATHOLOGY LABORATORY Embedded Images 3:41 PM CDT DERMATOPATHOLOGY LABORATORY Pathology/Cytolog y TISSUE SPECIMEN FROM SKIN / Unknown 07/31/2018 08/03/2018 10:59 AM CDT Augusta Soriano MD LAB - PATHOLOGY/CYTO LOGY ORDERABLES DERMATOPATHOLOGY LABORATORY [facility] - Department of Dermatology [address] [place] [address], [facility] [phone] documented in this encounter Visit Diagnoses Not on filedocumented in this encounter Care Teams Presales Senior Specialist Relationship Specialty Start Date End Date Karthik Shah MD [address] [place] [address] PCP - General Family Medicine 04/12/14 documented as of this encounter
--- OUTSIDE RECORDS SUMMARY | 2024-06-17 12:00 | XMS_ITS | Patient Health Summary ---
Author Organization [facility] [employer] Address [address] [place] [address] Care Team Providers Care Cellar Supervisor Name Role Phone Karthik Shah MD Primary Care Provider [phone] Note from [facility],non-owned Affiliates and Associated Physician Practices is amultiple site organization consisting of ambulatory clinics and hospital sitesin [place], [place], [place] and [place]. This disclosure is being madepursuant to the Care Everywhere program and may not contain all information available regarding this patient. Last updated 18.[facility] [employer] Allergies No known active allergies Medications * Be aware that medications may not be up to date on this document. Alwaysverify current medications with the patient. * topiramate (TOPAMAX) 25 MG tablet Take 25 mg by mouth 2 times daily. * lamoTRIgine (LAMICTAL) 200 MG tablet Take 200 mg by mouth 2 times daily. * citalopram (CELEXA) 40 MG tablet Take 40 mg by mouth once daily. * estradiol (ESTRACE) 0.5 MG tablet Take 0.5 mg by mouth once daily. * atorvastatin (LIPITOR) 20 MG tablet Take 20 mg by mouth at bedtime. * SUMAtriptan (IMITREX) 100 MG tablet Take 100 mg by mouth as needed for Migraine. * thyroid (ARMOUR THYROID) 90 MG tablet Take 90 mg by mouth once daily. * verapamil CR (CALAN SR) 240 MG tablet Take 240 mg by mouth daily with breakfast. * Misc. Devices (CRUTCHES)(Started 04/12/2014) Use as directed. Given in UC Immunizations * TDAP (7yrs+)(Given 04/12/2014) Social History Tobacco Use Types Packs/Day Years [...] Comments Blood Pressure 128/80 06/12/2019 10:45 AM REJOINER Pulse 79 06/12/2019 10:45 AM REJOINER Temperature 37 C (98.6 F) 06/12/2019 10:45 AM REJOINER Respiratory Rate 16 06/12/2019 10:45 AM REJOINER Oxygen Saturation 99% 06/12/2019 10:45 AM REJOINER Inhaled Oxygen Concentration - - Weight 75.8 kg (167 lb) 06/12/2019 10:45 AM REJOINER Height 154.9 cm (5' 1 ) 06/12/2019 10:45 AM REJOINER Body Mass Index 31.55 06/12/2019 10:45 AM REJOINER Procedures * INFLUENZA A+B - POINT OF CARE (AMB)(Performed 06/12/2019) Performed for Upper respiratory tract infection, unspecified type * STREP A SCREEN - POINT OF CARE (AMB) [facility](Performed 06/12/2019) Performed for Upper respiratory tract infection, unspecified type * DERMATOPATHOLOGY(Performed 07/31/2018) * FUNGUS KATHY - POINT OF CARE (AMB) [facility](Performed 07/04/2015) * PH FLUID - POCT (AMB) [facility](Performed 07/04/2015) * WET PREP - POINT OF CARE (AMB) [facility](Performed 07/04/2015) * XR FOOT LEFT 3VW OR MORE(Performed 04/12/2014) Performed for Fall, initial encounter * XR TIBIA FIBULA LEFT 2VW(Performed 04/12/2014) Performed for Fall, initial encounter Results * INFLUENZA A+B - POINT OF CARE (AMB) (06/12/2019 11:06 AM REJOINER) Influenza A Antigen Rapid Negative Negative Influenza B Antigen Rapid Negative Negative Influenza Internal Control present NEGATIVE - POSITIVE Influenza Lot Number [id number] Influenza Expiration Date 02 16 2021 Other NASOPHARYNGEAL SWAB / Unknown 06/12/2019 11:06 AM REJOINER Hilda Hernandez CONTRACT ADMINISTRATIVE ASSISTANT-NET APPLICATIONS DEVELOPER LAB - [facility] RE ORDERABLES * STREP A SCREEN - POINT OF CARE (AMB) [facility] (06/12/2019 10:57 AM REJOINER) Strep A Rapid POCT Negative Negative Strep A Internal Control Present Lot # [id number] Expiration Date [id number] Throat ENTIRE THROAT (SURFACE REGION OF NECK) / Unknown 06/12/2019 10:57 AM REJOINER Hilda Hernandez CONTRACT ADMINISTRATIVE ASSISTANT-[facility] - [facility] RE ORDERABLES * DERMATOPATHOLOGY (07/31/2018 12:00 AM CDT) Case Report Dermatopathology Report Case: [id number] Authorizing Provider: Augusta Soriano MD Collected: 07/31/2018 12:00 AM Pathologist: Brian Vallecillo MD Received: 08/03/2018 10:59 AM Specimen: Skin, right calf 9 3:41 PM CDT DERMATOPATHOLOGY LABORATORY Final Diagnosis Specimen A. SKIN, right calf: LICHEN PLANUS-LIKE KERATOSIS (BENIGN LICHENOID KERATOSIS) (L82.1) 9 3:41 PM CDT DERMATOPATHOLOGY LABORATORY Clinical History LPLK vs BCC. [place] scaly papule. 9 3:41 PM CDT DERMATOPATHOLOGY LABORATORY Gross Description Specimen A: Received is one formalin filled container labeled with the patient's name and designated right calf. The specimen consists of a shave measuring 1x3q1os. Jar 0. 9 3:41 PM CDT DERMATOPATHOLOGY LABORATORY Microscopic Description Specimen A. SKIN, right calf: The epidermis is mildly acanthotic. There is a mild lichenoid infiltrate with vacuolar changes of basilar keratinocytes and scattered necrotic keratinocytes. 9 3:41 PM CDT DERMATOPATHOLOGY LABORATORY Disclaimer An external and internal positive and negative controls are appropriate for the histochemical, immunohistochemical and immunofluorescence stain(s) in this case (if any), except where stated explicitly. The performance characteristics of the stain(s) cited in this report were developed and its performance characteristic determined by the Dermatopathology Laboratory at [facility], directed by Dr. Irais Vallecillo. These tests need not be, and therefore are not, approved by the [place] Food and Drug Administration. The tests are used for clinical purposes. Billing Codes Specimen Charges Stain Charges 53317 1 9 3:41 PM CDT DERMATOPATHOLOGY LABORATORY Embedded Images 9 3:41 PM CDT DERMATOPATHOLOGY LABORATORY Pathology/Cytolog y TISSUE SPECIMEN FROM SKIN / Unknown 07/31/2018 08/03/2018 10:59 AM CDT Augusta Soriano MD LAB - PATHOLOGY/CYTO LOGY ORDERABLES DERMATOPATHOLOGY LABORATORY [facility] - Department of Dermatology [address] [place] [address] 5th Floor Lab [address] [phone] * PH FLUID - POCT (AMB) [facility] (07/04/2015) pH Vaginal 5.0 [facility] Vaginal swab (specimen) 07/04/2015 Sinai Hernandez APRN-NET APPLICATIONS DEVELOPER LAB - POINT OF CARE ORDERABLES Performing Organization Address City/[facility]/ZIP Co de Phone Number [facility] * WET PREP - POINT OF CARE (AMB) [facility] (07/04/2015) pH Wet Prep 5.0 [facility] Yeast Wet Prep n [facility] Trichomonas Wet Prep n [facility] Bacteria Wet Prep n [facility] Whiff Test n [facility] 07/04/2015 Sinai Hernandez APRN-NET APPLICATIONS DEVELOPER LAB - POINT OF CARE ORDERABLES [facility] * FUNGUS KATHY - POINT OF CARE (AMB) [facility] (07/04/2015) KATHY [facility] n [facility] Fluid specimen (specimen) 07/04/2015 Sinai ANDERSON LAB - POINT OF CARE ORDERABLES [facility] * XR FOOT 3+ VW LEFT (04/12/2014 11:35 AM REJOINER) Anatomical Region Laterality Modality Ankle / Foot Radiographic Milly ging 04/12/2014 11:4 9 AM REJOINER Narrative 04/12/2014 11:49 AM REJOINER Left foot, 3 view History: Injury and pain there is no evidence of fracture or dislocation. The soft tissues are normal. Procedure Note Brian Singh MD - 04/12/2014 Left foot, 3 view History: Injury and pain there is no evidence of fracture or dislocation. The soft tissues are normal. [facility] ORDERABLES * XR TIBIA AND FIBULA 2 VW LEFT (04/12/2014 11:33 AM REJOINER) Anatomical Region Laterality Modality Lower Extremity Radiographic Milly ging 04/12/2014 11:5 8 AM REJOINER Addenda Addendum by Amelie Silva MD on 04/12/2014 7:43 PM REJOINER The purpose of this addendum is to correct a conveyor loader error: The correct report should read NO foreign body is seen. Findings discussed with [facility] on 04/12/2014 at 7:40 PM. Narrative 04/12/2014 11:59 AM REJOINER Left tibia fibula History: Injury and pain and bruising There is no evidence of a fracture or dislocation. Soft tissue swelling within the anterolateral leg is noted. The foreign body is seen. Procedure Note Brian Singh MD / Amelie Silva MD - 04/12/2014 Left tibia fibula History: Injury and pain and bruising There is no evidence of a fracture or dislocation. Soft tissue swelling within the anterolateral leg is noted. The foreign body is seen. [facility] ORDERABLES Care Teams Cellar Supervisor Relationship Specialty Start Date End Date Karthik Shah MD [address] [place] [address] PCP - General Family Medicine 04/12/14
--- OUTSIDE RECORDS SUMMARY | 2024-06-17 12:00 | XMS_ITS | Encounter Summary ---
Author Organization [facility] Address [address] [place] [address] Care Team Providers Care Rn Dialysis Name Role Phone Yaima Munoz MD Unavailable [phone] Karthik Shah MD Primary Care Provider [phone] Stephanie Rodríguez MD Unavailable [phone] Encounter Details Date Type Department Care Team (Late st Contact Info) Description 06/17/2024 Orders Only [facility] [address] [place] [id number] CarrierHalina RN Social History Tobacco Use Types Packs/Day Years Used Date Smoking Tobacco: Never Smokeless Tobacco: Never Alcohol Use Standard Drinks/Week Comments Yes 1 [...] on file Legal Sex Female 2:12 AM MANAGER PRODUCT SUPPORT Gender Identity Not on file Sexual Orientation Not on file 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 Not on file Not on file documented as of this encounter Plan of Treatment Not on file documented as of this encounter Visit Diagnoses Not on filedocumented in this encounter Care Teams Rn Dialysis Relationship Specialty Start Date End Date Karthik Shah MD [address] [place] [address] PCP - General Family Medicine 06/26/23 Yaima Munoz MD [address] [facility] [address] [place] [address] Consulting Physician Neuromuscular Medicine 05/27/19 Stephanie Rodríguez MD [facility] [facility] [address] [place], [place] [id number] Referring Physician Gynecology 06/26/23 documented as of this encounter
--- OUTSIDE RECORDS SUMMARY | 2024-06-17 12:00 | XMS_ITS | Encounter Summary ---
Author Organization [facility] Address [address] [place] [address] Phone Care Team Providers Care Vp Scientific Name Role Phone Karthik Shah MD Primary Care Provider [phone] Yaima Munoz MD Unavailable [phone] Karthik Shah MD Primary Care Provider [phone] Stephanie Rodríguez MD Unavailable [phone] Reason for Visit * Reason Onset Date Comments Falls and weakness 05/12/2023 Patient barker d stated she is falling more and having lots of weakness. Also pt will like blood work results from 04/03 I informed pt regarding Dr. Munoz absences and she will be back in office on 05/13. Encounter Details Date Type Department Care Team (Late st Contact Info) Description 05/12/2023 Telephone [facility] Neuro Muscle [address] [facility] 6[address] [place] [address] [place] [address] Nevaeh Colón, RMJerri Falls and weakness (Patient called stated she is falling more and having lots of weakness. Also pt will like blood work results from 04/03 I informed pt regarding Dr. Munoz absences and she will be back in office on 05/13.) Social History Tobacco Use Types Packs/Day Years [...] the money to buy more. Never true 04/18/20 23 Within the past 12 months, t he food you bought just didn't last and you didn't have money to get more. 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 Not on file Not on file documented as of this encounter Plan of Treatment Not on file documented as of this encounter Visit Diagnoses Not on filedocumented in this encounter Care Teams Vp Scientific Relationship Specialty Start Date End Date Karthik Shah MD PCP - General 10/05/15 06/25/23 Karthik Shah MD [address] [place] [address] PCP - General Family Medicine 06/26/23 Yaima Munoz MD [address] [place] [address] Consulting Physician Neuromuscular Medicine 05/27/19 Stephanie Rodríguez MD [address] [facility] [address] [facility] [address] [place], [place] [id number] Referring Physician Gynecology 06/26/23 documented as of this encounter
--- OUTSIDE RECORDS SUMMARY | 2024-06-17 12:00 | XMS_ITS | Clinical Summary ---
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 [...] (08/09/2016): Hypothyroidism Fibrositis 10/05/2015 Overview (08/09/2016): Fibromyalgia Encounters Date Type Department Care Team Description 06/17/2024 Orders Only [facility] [address] [place] [phone] Halina Burt RN 06/11/2024 Orders Only [facility] [address] [place] [phone] Joseph Strong RN 06/09/2024 7:30 AM [employer]P MONETIZATION Infusion [facility] [address] [place] [address] Ave [address] [place] [phone] Immune myopathy (Primary Dx) 06/08/2024 8:00 AM SVP MONETIZATION Infusion [facility] [address] [place] [phone] Immune myopathy (Primary Dx) 05/24/2024 Orders Only [facility] [address] [place] [address] Ave [address] [place] [phone] Jamaica Glass, SUSAN 05/19/2024 Orders Only [facility] [address] [place] [address] Ave [address] [place] [phone] Jamaica Glass, SUSAN 05/14/2024 7:30 AM [employer]P MONETIZATION Infusion [facility] [address] [place] [phone] Immune myopathy (Primary Dx) 05/14/2024 Orders Only [facility] Neuro Muscle [address] [facility] 6th [place] [address] [place] [address] Yaima Munoz MD 05/13/2024 7:30 AM SVP MONETIZATION Infusion [facility] [address] [phone] Immune myopathy (Primary Dx) 05/04/2024 Orders Only [facility] [address] [place] [phone] Jamaica Glass RN 04/16/2024 8:00 AM SVP MONETIZATION Infusion [facility] [address] [place] [address] Ave [address] [place] [phone] Immune myopathy (Primary Dx) 04/15/2024 7:30 AM SVP MONETIZATION Infusion [facility] [address] [place] [address] Ave [address] [place] [phone] Immune myopathy (Primary Dx) 04/09/2024 11:00 AM SVP MONETIZATION Lab [facility] [address] [place] [phone] Immune myopathy; High risk medications (not anticoagulants) long-term use 04/09/2024 9:00 AM SVP MONETIZATION Office Visit [facility] [address] [place] [address] Advanced Medicine 6th [place] [address] [place] [address] Yaima Munoz MD High risk medications (not anticoagulants) long-term use (Primary Dx); Immune myopathy; Long-term current use of high risk medication other than anticoagulant 04/07/2024 7:30 AM SVP MONETIZATION Infusion [facility] [address] [place] [address] Ave [address] [place] [phone] Immune myopathy (Primary Dx) 03/18/2024 8:00 AM SVP MONETIZATION Infusion [facility] [address] [place] [address] Ave [address] [place] [phone] Immune myopathy (Primary Dx) 03/17/2024 8:00 AM SVP MONETIZATION Infusion [facility] [address] [place] [address] Ave [address] [place] [phone] Immune myopathy (Primary Dx) from Last 3 Months Immunizations Name Administration Dates Next Due Influenza, Quadrivalent, Spl it, Preservative Free, Intramuscular 03/05/2015 Influenza, Unspecified 03/05/2023 Tdap 04/12/2014 Surgical History Surgery Date Site/Laterality Comments TOTAL ABDOMINAL HYSTERECTOMY Hysterectomy, total LUMBAR SPINE SURGERY 05/05/2009 - 05/04/2010 Surgery, lumbar spine - microdisectomy ROTATOR CUFF REPAIR rotator cuff repair CHOLECYSTECTOMY 05/05/2009 - 05/04/2010 MUSCLE BIOPSY 05/05/2015 - 05/04/2016 right shoulder BREAST SURGERY 05/05/1979 - 05/04/1980 Left lumpectomy - benign FASCIOTOMY BACK SURGERY HAND SURGERY SHOULDER SURGERY Medical History Medical History Date Comments Hx Other Medical 2012 compartment syn drome; Comments: SES 10/05/2015 - left lower leg, [place] with surgery Thyroid disease Hypothyroidism Bipolar disorder (HCC) Depression Anxiety 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 Migraines Fibromyalgia, primary Hypertension Joint pain Neuromuscular disease or syn drome (HCC) Sleep apnea Dizziness 05/2022 Ear problems Vertigo 05/2022 Family History Medical History Relation Name Comments Other Brother Cancer, neck; Coronary artery disease Father Chidi nary artery disease; Other Father parkinson's; Alzheimer's disease Mother Rachel Siddiqi Alz heimer's disease; COPD Mother Rachel Siddiqi COPD; Heart disease Mother Rachel Siddiqi heart dis ease; Stroke Mother Rachel Siddiqi Stroke; Diabetes Sister Dinora Pritchard Diabetes rachel itus; Relation Name Status Comments Brother Father Mother Rachel Siddiqi Sister Dinora Pritchard Social History Tobacco Use Types Packs/Day Years [...] on file Legal Sex Female 2:12 AM SVP MONETIZATION Gender Identity Not on file Sexual Orientation Not on file 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 Not on file Not on file Obstetrics History Last Filed Vital Signs Vital Sign Reading Time Taken Comments Blood Pressure 155/80 06/09/2024 11:05 AM [employer]P MONETIZATION Pulse 60 06/09/2024 11:05 AM [employer]P MONETIZATION Temperature 36.6 C (97.8 F) 06/09/2024 7:18 AM [employer]P MONETIZATION Respiratory Rate 18 06/09/2024 7:18 AM SVP MONETIZATION Oxygen Saturation 95% 06/09/2024 11:05 AM SVP MONETIZATION Inhaled Oxygen Concentration - - Weight 80.3 kg (177 lb) 06/09/2024 7:18 AM SVP MONETIZATION Height 157.5 cm (5' 2 ) 05/13/2024 7:27 AM SVP MONETIZATION Body Mass Index 32.37 05/13/2024 7:27 AM SVP MONETIZATION Plan of Treatment Health Maintenance Due Date Last Done Comments Colon Cancer Screening-Colonoscopy 1960 Hepatitis B Screening 1976 Zoster Vaccine (1 of 2) 2008 Osteoporosis Screening-Bone Density Scan 07/22/2020 07/22/2018 Depression Screening 07/26/2021 07/26/2020 Pneumococcal vaccine 65+ (1 of 1 - PCV) 11/07/2023 Well Visit 65+ 11/07/2023 Covid-19 Vaccine (6 - 2023-2 5 season) 2024 04/04/2023, 03/15/2022, 04/13/2021, Additional history exists Influenza Vaccine (#1) 2024 , 03/05/2023, 02/25/2022, Additional history exists DTaP/Tdap/Td Vaccine (2 - Td or Tdap) 04/12/2024 04/12/2014 Fall Risk Assessment 06/10/2024 06/10/2023, 01/09/20 18 Breast Cancer Screening-Mammogram 06/26/2024 06/26/2023, 05/28/2022, 06/05/2021, Additional history exists Hepatitis C Screening Completed 06/09/2023 Procedures Procedure Name Priority Date/Time Associated Diagnosis Comments EGFR Routine 04/09/2024 10:23 AM SVP MONETIZATION Immune myopathy High risk medications (not anticoagulants) long-term use DIFFERENTIAL AUTO Routine 04/09/2024 10: 23 AM SVP MONETIZATION Immune myopathy High risk medications (not anticoagulants) long-term use IGM Routine 04/09/2024 10:23 AM SVP MONETIZATION Immune myopathy High risk medications (not anticoagulants) long-term use IGG Routine 04/09/2024 10:23 AM SVP MONETIZATION Immune myopathy High risk medications (not anticoagulants) long-term use IGA Routine 04/09/2024 10:23 AM SVP MONETIZATION Immune myopathy High risk medications (not anticoagulants) long-term use IMMUNE COMPETENCE Routine 04/09/2024 10: 23 AM SVP MONETIZATION Immune myopathy High risk medications (not anticoagulants) long-term use ALDOLASE Routine 04/09/2024 10:23 AM SVP MONETIZATION Immune myopathy High risk medications (not anticoagulants) long-term use CREATINE KINASE (CK), TOTAL Routine 04/09/2024 10:23 AM SVP MONETIZATION Immune myopathy High risk medications (not anticoagulants) long-term use CBC WITH AUTO DIFFERENTIAL Routine 04/09/2024 10:23 AM SVP MONETIZATION Immune myopathy High risk medications (not anticoagulants) long-term use COMPREHENSIVE METABOLIC PANEL Routine 04/09/2024 10:23 AM SVP MONETIZATION Immune myopathy High risk medications (not anticoagulants) long-term use SCREENING MAMMOGRAM BILATERAL W SANJAY Schedule Routine, Read Routine (OP Routine) 06/26/2023 12:39 PM SVP MONETIZATION Screening mammogram, encounter for HEPATITIS PANEL, ACUTE STAT 06/09/2023 10:04 PM SVP MONETIZATION DEXA AXIAL SKELETON BONE DENSITY 1 OR MORE SITES Schedule Routine, Read Routine (OP Routine) 07/22/2018 11:00 AM CDT Encounter for screening for osteoporosis Asymptomatic menopausal state from Last 3 Months or Most Recently Relevant to Health Maintenance Results * eGFR (04/09/2024 10:23 AM SVP MONETIZATION) eGFR 79 >=60 mL/min/1. 73 m2 Comment: [...] reviewed 2021. Blood 04/09/2024 10:2 3 AM SVP MONETIZATION 04/09/2024 11:04 AM SVP MONETIZATION us Yaima Munoz MD LAB BLOOD ORDERABLES Final R esult [facility] [place] [address] * (ABNORMAL) Differential, auto (04/09/2024 10:23 AM SVP MONETIZATION) Neutrophil abs 1.8 1.5 - 6.5 K/cumm Imm gran abs 0.0 0.0 - 0.1 K/cumm [facility] Lymphocyte abs 0.7(L) 0.8 - 3.3 K/cumm [facility] Monocyte abs 0.4 0.2 - 0.8 K/cumm [facility] Eosinophil abs 0.0 0.0 - 0.5 K/cumm [facility] Basophil abs 0.0 0.0 - 0.1 K/cumm [facility] Neutrophil pct 61.8 % [facility] Comment: Interpretive Data Percent cell count reference ranges are not reported, since discordance with absolute values may lead to misinterpretation of CBC data. Current Interpretive Data was last revised on 2017. Imm gran pct 0.0 % [facility] Comment: Interpretive Data Percent cell count reference ranges are not reported, since discordance with absolute values may lead to misinterpretation of CBC data. Current Interpretive Data was last revised on 2017. Lymphocyte pct 24.5 % [facility] Comment: Interpretive Data Percent cell count reference ranges are not reported, since discordance with absolute values may lead to misinterpretation of CBC data. Current Interpretive Data was last revised on 2017. Monocyte pct 11.7 % [facility] Comment: Interpretive Data Percent cell count reference ranges are not reported, since discordance with absolute values may lead to misinterpretation of CBC data. Current Interpretive Data was last revised on 2017. Eosinophil pct 0.7 % [facility] Comment: Interpretive Data Percent cell count reference ranges are not reported, since discordance with absolute values may lead to misinterpretation of CBC data. Current Interpretive Data was last revised on 2017. Basophil pct 1.3 % [facility] Comment: Interpretive Data Percent cell count reference ranges are not reported, since discordance with absolute values may lead to misinterpretation of CBC data. Current Interpretive Data was last revised on 2017. Blood 04/09/2024 10:2 3 AM SVP MONETIZATION 04/09/2024 11:04 AM SVP MONETIZATION us Yaima Munoz MD LAB BLOOD ORDERABLES Final R esult [facility] [place] [address] * (ABNORMAL) Immune competence (04/09/2024 10:23 AM SVP MONETIZATION) CD3 pct 89(H) 60 - 88 % CD3 Absolute 601(L) 661 - 1,963 cells/mcL [facility] CD4 pct 57 31 - 64 % [facility] CD4 Absolute 380 365 - 1,294 cells/mcL [facility] CD8 pct 32 12 - 40 % [facility] CD8 Absolute 211 187 - 781 cells/mcL [facility] CD19 pct 0(L) 6 - 25 % [facility] CD19 Absolute <25(L) 86 - 488 cells/mcL [facility] Comment:Repeated and verifie d. [id number] pct 10 5 - 25 % [facility] [id number] Absolute 68(L) 76 - 467 cells/mcL [facility] CD4/CD8 ratio 1.8 0.9 - 4.4 [facility] Blood 04/09/2024 10:2 3 AM SVP MONETIZATION 04/09/2024 11:01 AM SVP MONETIZATION us Yaima Munoz MD LAB BLOOD ORDERABLES Final R esult [facility] [place] [address] * (ABNORMAL) CBC with auto differential (04/09/2024 10:23 AM SVP MONETIZATION) WBC 3.0(L) 3.8 - 9.9 K/cumm Hgb 12.6 11.9 - 15.5 g/dL [facility] Hct 38.5 35.6 - 45.5 % [facility] Plt 268 150 - 400 K/cumm [facility] MPV 9.7 9.1 - 12.3 fL [facility] RBC 4.15 3.90 - 5.20 M/cumm [facility] MCV 92.8 81.3 - 96.4 fL [facility] MCH 30.4 27.1 - 33.3 pg [facility] MCHC 32.7 32.3 - 35.7 g/dL [facility] RDW CV 13.7 11.1 - 14.9 % [facility] RDW SD 46.5 35.7 - 48.1 fL [facility] NRBC abs 0.00 0.00 - 0.01 K/cumm [facility] Blood 04/09/2024 10:2 3 AM SVP MONETIZATION 04/09/2024 11:04 AM SVP MONETIZATION us Yaima Munoz MD LAB BLOOD ORDERABLES Final R esult Performing Organization Address City/[facility] Co de Phone Number [facility] [place] [address] * Aldolase (04/09/2024 10:23 AM SVP MONETIZATION) Aldolase 4.5 0.1 - 8.0 Units/L Blood 04/09/2024 10:2 3 AM SVP MONETIZATION 04/09/2024 11:04 AM SVP MONETIZATION us Yaima Munoz MD LAB BLOOD ORDERABLES Final R esult Performing Organization Address [facility] Co de Phone Number [facility] [place] [address] * IgA (04/09/2024 10:23 AM SVP MONETIZATION) Immunoglobulin A 81 70 - 400 mg/dL Blood 04/09/2024 10:2 3 AM SVP MONETIZATION 04/09/2024 11:04 AM SVP MONETIZATION us Yaima Munoz MD LAB BLOOD ORDERABLES Final R esult Performing Organization Address City/[facility] Co de Phone Number [facility] [place] [address] * IgM (04/09/2024 10:23 AM SVP MONETIZATION) Immunoglobulin M 63 40 - 230 mg/dL Blood 04/09/2024 10:2 3 AM SVP MONETIZATION 04/09/2024 11:04 AM SVP MONETIZATION us Yaima Munoz MD LAB BLOOD ORDERABLES Final R esult Performing Organization Address [place]/[facility] Co de Phone Number [facility] [place] [address] * IgG (04/09/2024 10:23 AM SVP MONETIZATION) [facility] Immunoglobulin G 1,511 700 - 1,600 mg/dL Blood 04/09/2024 10:2 3 AM SVP MONETIZATION 04/09/2024 11:04 AM SVP MONETIZATION Yaima Munoz MD LAB BLOOD ORDERABLES Final R esult Performing Organization Address [facility] Co de Phone Number [facility] [place] [address] * Creatine kinase (CK), total (04/09/2024 10:23 AM SVP MONETIZATION) [facility] CK 153 30 - 200 Units/L Blood 04/09/2024 10:2 3 AM SVP MONETIZATION 04/09/2024 11:04 AM SVP MONETIZATION Yaima Munoz MD LAB BLOOD ORDERABLES Final R [facility] Performing Organization Address [facility] Co de Phone Number [facility] [place] [address] * (ABNORMAL) Comprehensive metabolic panel (04/09/2024 10:23 AM SVP MONETIZATION) [facility] Sodium 143 135 - 145 mmol/L Potassium, pl 5.0(H) 3.3 - 4.9 mmol/L [facility] Chloride 109 97 - 110 mmol/L [facility] CO2 27 22 - 32 mmol/L [facility] Anion gap 7 2 - 15 mmol/L [facility] BUN 19 6 - 25 mg/dL [facility] Creatinine 0.82 0.60 - 1.10 mg/dL [facility] Glucose 94 70 - 199 mg/dL [facility] Comment: Interpretive Data Fasting glucose >/= 126 [...] Calcium 9.6 8.5 - 10.3 mg/dL [facility] Bilirubin, total 0.2 0.1 - 1.2 mg/dL [facility] Protein, pl 8.1 6.5 - 8.5 g/dL [facility] Albumin 4.5 3.5 - 5.0 g/dL [facility] Alk phos 109 40 - 130 Units/L [facility] ALT 17 7 - 45 Units/L [facility] AST 32 10 - 45 Units/L [facility] Blood 04/09/2024 10:2 3 AM SVP MONETIZATION 04/09/2024 11:04 AM SVP MONETIZATION us Yaima Munoz MD LAB BLOOD ORDERABLES Final R esult [facility] [place] [address] * Screening Mammogram Bilateral W Sanjay (06/26/2023 12:39 PM SVP MONETIZATION) Anatomical Region Laterality Modality Breast Bilateral Mammography Narrative 07/07/2023 1:13 PM SVP MONETIZATION Mammogram Technique: Bilateral Digital Breast Tomosynthesis, Bilateral C-view 2D Screening mammogram. Views obtained: bilateral craniocaudal and bilateral mediolateral oblique. Computer Aided Detection was performed. Mammogram Findings: The present examination has been compared to prior imaging studies performed at [facility] on 06/02/2020, 06/05/2021 and 05/28/2022. There are [...] compared to prior imaging studies performed at [facility] on 06/02/2020, 06/05/2021 and 05/28/2022. There are scattered areas of fibroglandular density. There is no suspicious abnormality in either breast. Impression: There is no mammographic evidence of malignancy. Annual screening mammography is recommended. OVERALL FINAL ASSESSMENT: BI-RADS CATEGORY 1: Negative. us Self Screening Mammogram IMG MAMMO PROCEDURES Fi nal Result * Hepatitis panel, acute Blood (06/09/2023 10:04 PM SVP MONETIZATION) Hep A IgM Nonreactive Nonreactive [facility] Hep B core IgM Nonreactive Nonreactive [facility] Hep C Ab Nonreactive Nonreactive [facility] Comment:Antibodies to HCV no t detected. Does NOT exclude the possibility of recent exposure to HCV. Current interpretive data was last revised on 22 HepBsAg Nonreactive Nonreactive [facility] Blood 06/09/2023 10:0 4 PM SVP MONETIZATION 06/09/2023 10:15 PM SVP MONETIZATION Diogenes Salomon MD PhD LAB MICROBIOLOGY - GENERAL ORDERABLES Final Result [facility] [place] [address] * Dexa Axial Skeleton Bone Density 1 [...] signed by: Danielle Trent M.D. [employer] IMG DXA PROCED URES Final Result from Last 3 Months or Most Recently Relevant to Health Maintenance Insurance [facility] ADVANTAGE CHOICE PPO FORMERLY [facility] EMPL[employer]EE HEALTH PLANS Address: [address] [place] [address] [facility] Advance Directives For more information, please contact: [phone] * Full Code (Latest Code Status on File) Date Activated Date Inactivated Comments 06/09/2023 6:34 PM 06/10/2023 11:15 PM Care Teams Provider Engagement Executive Relationship Specialty Start Date End Date Karthik Shah MD [address] [place] [address] PCP - General Family Medicine 06/26/23 Yaima Munoz MD [address] [facility] [address] [place] [address] Consulting Physician Neuromuscular Medicine 05/27/19 Stephanie Rodríguez MD [address] [place] [address] Referring Physician Gynecology 06/26/23
--- OUTSIDE RECORDS SUMMARY | 2024-06-17 12:00 | XMS_ITS | Encounter Summary ---
Author Organization [facility] Address [address] [place] [address] Phone Care Team Providers Care Infection Prevention Coordinator Name Role Phone Karthik Shah MD Primary Care Provider [phone] Yaima Munoz MD Unavailable [phone] Karthik Shah MD Primary Care Provider [phone] Stephanie Rodríguez MD Unavailable [phone] Encounter Details Date Type Department Care Team (Late st Contact Info) Description 06/21/2021 Documentation [facility] Movement Disorders [address] [facility] 6th [place] [address] [place] [address] Yessenia Louis CMA Social History Tobacco Use Types Packs/Day Years Used Date Smoking Tobacco: Never Smokeless Tobacco: Never Alcohol Use Standard Drinks/Week Comments Yes 1 (1 standard drink = 0.6 oz pur e alcohol) per month PHQ-2 Answer Date Recorded PHQ-2 Total Score (If total score is 3 or more points, staff should administer the PHQ-9) 0 07/26/2020 Comments No Sex and Gender Information Value Date Recorded Sex Assigned at Not on file 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 Gender Identity Not on file Sexual Orientation Not on file 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 Not on file Not on file documented as of this encounter Plan of Treatment Not on file documented as of this encounter Visit Diagnoses Not on filedocumented in this encounter Additional Health Concerns Infection Onset Date Last Indicated Resolved Time COVID: Suspected 10/03/2021 10/03/2021 10/04/2021 3:05 AM CDT COVID: Suspected 10/03/2021 10/03/2021 10/04/2021 4:09 AM CDT COVID19 10/03/2021 10/03/2021 10/13/2021 3:05 AM CDT COVID: Recovered Comment:Added based on recent COVID infection. 10/13/2021 11/07/2021 02/10/2022 3:05 AM C DT documented as of this encounter Care Teams Infection Prevention Coordinator Relationship Specialty Start Date End Date Karthik Shah MD PCP - General 10/05/15 06/25/23 [place]arth[place] [address] [place] [address] PCP - General Family Medicine 06/26/23 Yaima Munoz MD [address] [place] [address] Consulting Physician Neuromuscular Medicine 05/27/19 Stephanie Rodríguez MD [address] [facility] [address] [place] [address] Referring Physician Gynecology 06/26/23 documented as of this encounter
[2024-06-17 12:27] LABS: Hemoglobin 13.3 g/dL (12.0-15.0); Mean Corpuscular HGB Conc 33.3 g/dl (32-36); Mean Corpuscular Hemoglobin 30.8 pg (26-34); Mean Corpuscular Volume 92.6 fl (80-100); Mean Platelet Volume 9.4 fl (7.4-10.4); Platelet Count Result 272 k/mm3 (150-375); Red Blood Count 4.32 M/mm3 (4.2-5.4); Red Cell Distribution Width 14.6 % (11.5-14.5); White Blood Count 4.1 K/mm3 (4.5-10.0)
[2024-06-17 12:38] LABS: Alanine Aminotransferase 19 U/L (6-35); Albumin Level 4.6 g/dL (3.5-5.1); Alkaline Phosphatase 105 U/L (38-126); Anion Gap 10 mmol/L (4-12); Aspartate Amino Transferase 35 U/L (14-36); Bilirubin,Total 0.5 mg/dL (0.2-1.3); Blood Urea Nitrogen 18 mg/dL (7-17); Calcium 9.5 mg/dL (8.4-10.2); Carbon Dioxide 24 mmol/L (22-30); Chloride 106 mmol/L (98-107); Cholesterol 244 mg/dL (0-200); Estimated Glomerular Filt Rate > 60; Glucose 103 mg/dL (65-110); HDL Direct 69 mg/dL; Potassium 4.7 mmol/L (3.4-5.0); Sodium 140 mmol/L (137-145); Triglycerides 273 mg/dL (<150)
[2024-06-17 12:49] LABS: LDL Cholesterol Direct 119 mg/dL
[2024-06-17 13:08] LABS: Thyroid Stimulating Hormone < 0.015 uIU/mL (0.465-4.680)
[2024-06-18 06:11] LABS: Free T4 Free Thyroxine 1.51 ng/dL (0.78-2.19)
== END 2024-06-17 11:57 | disposition home or self-care (01) ==
PROVIDERS: PCP Family Medicine; Visit Provider Family Medicine
DX: M43.02 Spondylolysis, cervical region (principal); E78.5 Hyperlipidemia, unspecified; I10 Essential (primary) hypertension; E03.9 Hypothyroidism, unspecified; K76.0 Fatty (change of) liver, not elsewhere classified
CPT/HCPCS: 36415; 72052; 80048; 80061; 80076; 84439; 84443; 85027

== ENCOUNTER 2024-10-21 14:47 | Outpatient (CLI) | payer OTHER, SELFPAY ==
--- NOTE | ~2024-10-21 | DEXA_ITS ---
Bone Density Report Name: JAYLEEN KNIGHT Age: 63 Sex: Female Ethnicity: White Date of : 1960 Indication: postmenopausal; screening for osteoporosis; hysterectomy; Referring Provider: CASEY ELDER Study: Bone densitometry was performed. Exam Date: October 21, 2024 Accession number: [id number] Bone Density: Region BMD T-score Z-score Classification AP Spine(L1-L4) 1.163 1.1 2.9 Normal Femoral Neck (Left) 0.719 -1.2 0.4 Osteopenia Total Hip (Left) 0.852 -0.7 0.5 Normal Femoral Neck (Right) 0.752 -0.9 0.7 Normal Total Hip (Right) 0.981 0.3 1.6 Normal Total Hip Mean 0.916 -0.2 1.1 Normal World Health Organization criteria for BMD impression classify patients as: Normal (T-score at or above -1.0), Osteopenia (T-score between -1.0 and -2.5), or Osteoporosis (T-score at or below -2.5). 10-year Fracture Risk(1): Major Osteoporotic Fracture 8.1% Hip Fracture 0.7% Reported Risk Factors: [place] (), Neck BMD=0.719, BMI=32.2 (1) FRAX(R) Version 3.08. Fracture probability calculated for an untreated patient. Fracture probability may be lower if the patient has received treatment. Clinical Information Provided by Patient: Has used the following medications: Forteo (i.e. parathyroid hormone), HRT (i.e. estrogen/hormone therapy), Vitamin D, Calcium Has the following medical conditions: Hysterectomy Patient maximum height was 62.5 Menopause Age: 56 No regular weight bearing exercise Drinks caffeinated beverages Onset of menses at age 8 Number of children 3 Impression: The patient has low bone mass, based on the Left Femoral Neck T-score. The patient has an estimated ten-year risk of hip fracture of 0.7% and an estimated ten-year risk of major fracture of 8.1%, based on the WHO FRAX algorithm. Discussion: BONE DENSITY IS LOW AT ONE OR MORE SKELETAL SITES. This patient's lowest T-score is low at one or more skeletal sites. It meets the World Health Organization's (WHO) criteria for ?low bone mass? (T-score between -1.0 and -2.5). The patient's 10-year risk of fracture as calculated by FRAX is less than the threshold where pharmacological therapy is recommended by the National Osteoporosis Foundation (NOF). However, all treatment decisions require clinical judgment and consideration of individual patient factors, including patient preferences, comorbidities, previous drug use, risk factors not captured in the FRAX model (e.g., frailty, falls, vitamin D deficiency, increased bone turnover, interval significant decline in bone density) and possible under or overestimation of fracture risk by FRAX. The patient should follow a healthful lifestyle (good nutrition with adequate calcium and vitamin D, and appropriate weight-bearing exercise). Follow-Up: Consider repeating this study in 2 to 3 years to reassess this patient's status, or sooner if there is some new clinical indication. Reported by: NANY on 10/21/2024 3:14:00 PM. Reviewed, dictated and finalized at location A.
== END 2024-10-21 14:48 | disposition home or self-care (01) ==
PROVIDERS: PCP Family Medicine; Visit Provider Obstetrics & Gynecology Gynecology
DX: Z78.0 Asymptomatic menopausal state (principal); M85.852 Other specified disorders of bone density and structure, left thigh
CPT/HCPCS: 77080

== ENCOUNTER 2025-02-01 13:46 | Outpatient (CLI) | payer OTHER, SELFPAY ==
--- NOTE | ~2025-02-01 | XR_ITS ---
XR lumbar spine 6V w bending Indication: M54.50 - Low back pain, unspecified, PAIN X 1 MONTH Comparison: None Findings: No fracture identified, no subluxation flexion and extension. Minimal grade 1 anterolisthesis of L3 on L4. The disc heights are intact. Soft tissues unremarkable Impression: No acute abnormality. Reviewed, dictated and finalized at location P. Impression: No acute abnormality.
--- OUTSIDE RECORDS SUMMARY | 2025-02-01 14:02 | XMS_ITS | Clinical Summary ---
Author Organization [facility] al Address [address] [place] [address] Care Team Providers Care Technical Operations Vice President Name Role Phone Yaima Munoz MD Unavailable [phone] Karthik Shah MD Primary Care Provider [phone] Stephanie Rodríguez MD Unavailable [phone] Allergies No known active allergies Medications lamoTRIgine [...] Encounters Date Type Department Care Team Description 01/25/2025 7:30 AM CDT Infusion [facility] [address] [place] [phone] Immune myopathy (Primary Dx) 01/24/2025 7:30 AM CDT Infusion [facility] [address] [place] [phone] Immune myopathy (Primary Dx) 01/24/2025 Orders Only [facility] [address] [phone] Monica Arnold, SUSAN 01/20/2025 Orders Only [facility] Neuro Muscle [address] [facility] 6th [place] [address] Epi Colón, SUSAN 01/20/2025 Orders Only [facility] [address] [phone] Halina Burt, SUSAN 01/14/2025 Orders Only [facility] [address] [phone] Monica Arnold, SUSAN 12/24/2024 Results Follow-Up [facility] Neuro Muscle [address] [facility] 6th [place] [address] [place] [address] Yaima Munoz MD eGFR 12/24/2024 Results Follow-Up [facility] Neuro Muscle [address] [facility] 6th [address] [place] [address] Yaima Munoz MD Erythrocyte sedimentation rate 12/21/2024 7:30 AM CDT Infusion [facility] [address] [phone] Immune myopathy (Primary Dx) 12/20/2024 7:30 AM CDT Infusion [facility] [address] [place] [phone] Immune myopathy (Primary Dx) 11/30/2024 Orders Only [facility] Neuro Muscle [address] [facility] 6th [place] [address] Epi Colón RN 11/26/2024 10:20 AM CDT Lab [facility] [address] [place] [phone] Immune myopathy 11/26/2024 9:00 AM CDT Office Visit [facility] Neuro Muscle [address] [facility] 6th [place] [address] Yaima Munoz MD Pharyngoesophageal dysphagia; Immune myopathy 11/23/2024 7:30 AM CDT Infusion [facility] [address] [place] [phone] Immune myopathy (Primary Dx) 11/22/2024 1:00 PM CDT Lab [facility] [address] [place] [phone] Immune myopathy 11/22/2024 7:30 AM CDT Infusion [facility] [address] [place] [phone] Immune myopathy (Primary Dx) 11/17/2024 Orders Only [facility] [address] [place] [phone] Joseph Strong RN 11/10/2024 7:30 AM CDT Infusion [facility] [address] [place] [phone] Immune myopathy (Primary Dx) 11/09/2024 Orders Only [facility] [address] [place] [address] Monica Arnold RN from Last 3 Months Immunizations Immunization Administration Dates Next Due Influenza, Quadrivalent, Spl [...] with surgery Thyroid disease Hypothyroidism Bipolar disorder Depression Anxiety Myopathy 2015 diagnosed per mu [...] the money to buy more. Never true 01/26/20 25 Within the past 12 months, t he food you bought just didn't last and you didn't have money to get more. Never true 01/25/2025 Personal Safety Answer Date Recorded Have you ever been in or are you currently in a harmful physical or emotional relationship or is someone making you feel afraid or unsafe? 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 MANAGER Gender Identity Not on file Sexual Orientation Not on file 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 Not on file Not on file Obstetrics History Last Filed Vital Signs Vital Sign Reading Time Taken Comments Blood Pressure 137/75 01/25/2025 10:45 AM CDT Pulse 68 01/25/2025 10:45 AM CDT Temperature 35.8 C (96.5 F) 01/25/2025 7:15 AM CDT Respiratory Rate 16 01/24/2025 7:18 AM CDT Oxygen Saturation 98% 01/25/2025 10:45 AM CDT Inhaled Oxygen Concentration - - Weight 81.2 kg (179 lb) 01/25/2025 7:15 AM CDT Height 157.5 cm (5' 2) 12/20/2024 7:15 AM CDT Body Mass Index 32.74 12/20/2024 7:15 AM CDT Plan of Treatment Health Maintenance Due Date Last Done Comments Colon Cancer Screening-Colonoscopy 1960 Hepatitis B Screening 1976 Pneumococcal vaccine 65+ (1 of 1 - PCV) 2008 Zoster Vaccine (1 of 2) 2008 Osteoporosis Screening-Bone Density Scan 07/22/2020 07/22/2018 Depression Screening 07/26/2021 07/26/2020 Well Visit 65+ 11/07/2023 DTaP/Tdap/Td Vaccine (2 - Td or Tdap) 04/12/2024 04/12/2014 Fall Risk Assessment 06/10/2024 06/10/2023, 01/09/20 18 Covid-19 Vaccine (6 - 2024-2 6 season) 2025 04/04/2023, 03/15/2022, 04/13/2021, Additional history exists Influenza Vaccine (#1) 2025 , 04/04/2023, 03/05/2023, Additional history exists Breast Cancer Screening-Mammogram 07/06/2025 07/06/2024, 06/26/2023, 05/28/2022, Additional history exists Hepatitis C Screening Completed 06/09/2023 Procedures Procedure Name Priority Date/Time Associated Diagnosis Comments ERYTHROCYTE SEDIMENTATION RATE Routine 11/26/2024 9:59 AM CDT Immune myopathy CREATINE KINASE (CK), TOTAL Routine 11/26/2024 9:59 AM CDT Immune myopathy ALDOLASE Routine 11/26/2024 9:59 AM CDT Immune myopathy EGFR Routine 11/22/2024 11:15 AM CDT Immune myopathy DIFFERENTIAL AUTO Routine 11/22/2024 11: 15 AM CDT Immune myopathy CBC WITH AUTO DIFFERENTIAL Routine 11/22/2024 11:15 AM CDT Immune myopathy ERYTHROCYTE SEDIMENTATION RATE Routine 11/22/2024 11:15 AM CDT Immune myopathy CD3 COUNT Routine 11/22/2024 11:15 AM CDT Immune myopathy IMMUNOGLOBULIN D, QUANT, SERUM Routine 11/22/2024 11:15 AM CDT Immune myopathy BASIC METABOLIC PANEL Routine 11/22/2024 11:15 AM CDT Immune myopathy SCREENING MAMMOGRAM BILATERAL W SANJAY Schedule Routine, Read Routine (OP Routine) 07/06/2024 12:49 PM DAY SPA MANAGER Screening mammogram, encounter for HEPATITIS PANEL, ACUTE STAT 06/09/2023 10:04 PM DAY SPA MANAGER DEXA AXIAL SKELETON BONE DENSITY 1 OR MORE SITES Schedule Routine, Read Routine (OP Routine) 07/22/2018 11:00 AM CDT Encounter for screening for osteoporosis Asymptomatic menopausal state from Last 3 Months or Most Recently Relevant to Health Maintenance Results * Aldolase (11/26/2024 9:59 AM CDT) Aldolase 4.7 0.1 - 8.0 Units/L Blood 11/26/2024 9:59 AM CDT 11/26/2024 10:20 AM CDT Yaima Munoz MD LAB BLOOD ORDERABLES Final R esult Performing Organization Address City/[facility]/ZIP Co de Phone Number [facility] [place] [address] * (ABNORMAL) Erythrocyte sedimentation rate (11/26/2024 9:59 AM CDT) Pathologist [facility] Erythrocyte sedimentation rate 109(H) 1 - 30 mm/hr Blood 11/26/2024 9:59 AM CDT 11/26/2024 10:20 AM CDT Yaima Munoz MD LAB BLOOD ORDERABLES Final R esult Performing Organization Address City/[facility] Co de Phone Number [facility] [place] [address] * Creatine kinase (CK), total (11/26/2024 9:59 AM CDT) Pathologist [facility] CK 73 30 - 200 Units/L Blood 11/26/2024 9:59 AM CDT 11/26/2024 10:20 AM CDT Yaima Munoz MD LAB BLOOD ORDERABLES Final R esult Performing Organization Address City/[facility]/ZIP Co de Phone Number [facility] [place] [address] * eGFR (11/22/2024 11:15 AM CDT) Pathologist [facility] eGFR 71 >=60 mL/min/1. 73 m2 Comment: Interpretive Data [...] interpretive data was last reviewed 2021. Blood 11/22/2024 11:1 5 AM CDT 11/22/2024 11:57 AM CDT us Yaima Munoz MD LAB BLOOD ORDERABLES Final R esult [facility] [place] [address] * (ABNORMAL) Differential, auto (11/22/2024 11:15 AM CDT) [facility] Neutrophil abs 2.84 1.50 - 6.50 K/cumm Imm gran abs 0.01 0.00 - 0.10 K/cumm [facility] Lymphocyte abs 0.78(L) 0.80 - 3.30 K/cumm [facility] Monocyte abs 0.45 0.20 - 0.80 K/cumm [facility] Eosinophil abs 0.08 0.00 - 0.50 K/cumm [facility] Basophil abs 0.02 0.00 - 0.10 K/cumm [facility] Neutrophil pct 67.9 % [facility] Comment: Interpretive Data Percent cell count reference ranges are not reported, since discordance with absolute values may lead to misinterpretation of CBC data. Current Interpretive Data was last revised on 2017. Imm gran pct 0.2 % [facility] Comment: Interpretive Data Percent cell count reference ranges are not reported, since discordance with absolute values may lead to misinterpretation of CBC data. Current Interpretive Data was last revised on 2017. Lymphocyte pct 18.7 % [facility] Comment: Interpretive Data Percent cell count reference ranges are not reported, since discordance with absolute values may lead to misinterpretation of CBC data. Current Interpretive Data was last revised on 2017. Monocyte pct 10.8 % [facility] Comment: Interpretive Data Percent cell count reference ranges are not reported, since discordance with absolute values may lead to misinterpretation of CBC data. Current Interpretive Data was last revised on 2017. Eosinophil pct 1.9 % [facility] Comment: Interpretive Data Percent cell count reference ranges are not reported, since discordance with absolute values may lead to misinterpretation of CBC data. Current Interpretive Data was last revised on 2017. Basophil pct 0.5 % [facility] Comment: Interpretive Data Percent cell count reference ranges are not reported, since discordance with absolute values may lead to misinterpretation of CBC data. Current Interpretive Data was last revised on 2017. Blood 11/22/2024 11:1 5 AM CDT 11/22/2024 11:57 AM CDT us Yaima Munoz MD LAB BLOOD ORDERABLES Final R esult [facility] [place] [address] * Immunoglobulin D, quantitative (11/22/2024 11:15 AM CDT) IgD <2 <=10 mg/dL [facility] Comment: Test Performed by: [facility] - [address] [address] Wood Floor Layer: Bruna Cohn Ph.D.; CLIA# [id number] Blood 11/22/2024 11:1 5 AM CDT 11/22/2024 12:24 PM CDT Narrative [facility] - 11/24/2024 9:57 AM CDT Draw labs every 2 weeks before the initial doses Draw labs every 6 weeks before the maintenance doses Yaima Munoz MD LAB BLOOD ORDERABLES Final R esult [facility] [place] [address] [facility] ref [facility] * (ABNORMAL) CBC with auto differential (11/22/2024 11:15 AM CDT) [facility] WBC 4.18 3.80 - 9.90 K/cumm Hgb 11.4(L) 11.9 - 15.5 g/dL [facility] Hct 34.5(L) 35.6 - 45.5 % [facility] Plt 249 150 - 400 K/cumm [facility] MPV 9.6 9.1 - 12.3 fL [facility] RBC 3.67(L) 3.90 - 5.20 M/cumm [facility] MCV 94.0 81.3 - 96.4 fL [facility] MCH 31.1 27.1 - 33.3 pg [facility] MCHC 33.0 32.3 - 35.7 g/dL [facility] RDW CV 14.1 11.1 - 14.9 % [facility] RDW SD 48.0 35.7 - 48.1 fL [facility] NRBC abs 0.00 0.00 - 0.01 K/cumm [facility] Blood 11/22/2024 11:1 5 AM CDT 11/22/2024 11:57 AM CDT Narrative [facility] - 11/22/2024 12:08 PM CDT Draw labs every 2 weeks before the initial doses Draw labs every 6 weeks before the maintenance doses Yaima Munoz MD LAB BLOOD ORDERABLES Final R esult [facility] [place] [address] * (ABNORMAL) CD3 count (11/22/2024 11:15 AM CDT) [facility] CD3 pct 83 60 - 88 % CD3 Absolute 653(L) 661 - 1,963 cells/mcL [facility] Blood 11/22/2024 11:1 5 AM CDT 11/22/2024 11:51 AM CDT Narrative [facility] - 11/22/2024 3:31 PM CDT Draw labs every 2 weeks before the initial doses Draw labs every 6 weeks before the maintenance doses Yaima Munoz MD LAB BLOOD ORDERABLES Final R esult Performing Organization Address [facility] [place] [address] * (ABNORMAL) Erythrocyte sedimentation rate (11/22/2024 11:15 AM CDT) [facility] Erythrocyte sedimentation rate 126(H) 1 - 30 mm/hr Blood 11/22/2024 11:1 5 AM CDT 11/22/2024 11:57 AM CDT Narrative [facility] - 11/22/2024 12:48 PM CDT Draw labs every 2 weeks before the initial doses Draw labs every 6 weeks before the maintenance doses Yaima Munoz MD LAB BLOOD ORDERABLES Final R esult Performing Organization Address City/[facility] [place] [address] * (ABNORMAL) Basic metabolic panel (11/22/2024 11:15 AM CDT) [facility] Sodium 135 135 - 145 mmol/L Potassium, pl 4.9 3.3 - 4.9 mmol/L [facility] Chloride 106 97 - 110 mmol/L [facility] CO2 24 22 - 32 mmol/L [facility] Anion gap 5 2 - 15 mmol/L [facility] BUN 32(H) 6 - 25 mg/dL [facility] Creatinine 0.89 0.60 - 1.10 mg/dL [facility] Glucose 97 70 - 199 mg/dL [facility] Comment: Interpretive Data Fasting glucose >/= [...] interpretive data was last revised 2022. Calcium 8.8 8.5 - 10.3 mg/dL [facility] Blood 11/22/2024 11:1 5 AM CDT 11/22/2024 11:57 AM CDT Narrative [facility] - 11/22/2024 12:26 PM CDT Draw labs every 2 weeks before the initial doses Draw labs every 6 weeks before the maintenance doses Yaima Munoz MD LAB BLOOD ORDERABLES Final R esult [facility] [place] [address] * Screening Mammogram Bilateral W Sanjay (07/06/2024 12:49 PM DAY SPA MANAGER) Anatomical Region Laterality Modality Breast Bilateral Mammography Narrative 07/07/2024 10:31 AM DAY SPA MANAGER Mammogram Technique: Bilateral Digital Breast Tomosynthesis, Bilateral C-view 2D Screening mammogram. Views obtained: bilateral craniocaudal and bilateral mediolateral oblique. Computer Aided Detection was performed. Mammogram Findings: The present examination has been compared to prior imaging studies performed at [facility] on 06/05/2021, 05/28/2022 and 06/26/2023. There are scattered areas of fibroglandular density. There is no suspicious abnormality in either breast. Impression: There is no mammographic evidence of malignancy. Annual screening mammography is recommended. OVERALL FINAL ASSESSMENT: BI-RADS CATEGORY 1: Negative. Procedure Note Kavitha Macias MD - 07/07/2024 Mammogram Technique: Bilateral Digital Breast Tomosynthesis, Bilateral C-view 2D Screening mammogram. Views obtained: bilateral craniocaudal and bilateral mediolateral oblique. Computer Aided Detection was performed. Mammogram Findings: The present examination has been compared to prior imaging studies performed at [facility] on 06/05/2021, 05/28/2022 and 06/26/2023. There are scattered areas of fibroglandular density. There is no suspicious abnormality in either breast. Impression: There is no mammographic evidence of malignancy. Annual screening mammography is recommended. OVERALL FINAL ASSESSMENT: BI-RADS CATEGORY 1: Negative. us Self Screening Mammogram IMG MAMMO PROCEDURES Fi nal Result * Hepatitis panel, acute Blood (06/09/2023 10:04 PM DAY SPA MANAGER) Hep A IgM Nonreactive Nonreactive [facility] Hep B core IgM Nonreactive Nonreactive [facility] Hep C Ab Nonreactive Nonreactive [facility] Comment:Antibodies to HCV no t detected. Does NOT exclude the possibility of recent exposure to HCV. Current interpretive data was last revised on 22 HepBsAg Nonreactive Nonreactive [facility] Blood 06/09/2023 10:0 4 PM DAY SPA MANAGER 06/09/2023 10:15 PM DAY SPA MANAGER Diogenes Salomon MD PhD LAB MICROBIOLOGY - GENERAL ORDERABLES Final Result [facility] [place] [address] * Dexa Axial Skeleton Bone Density 1 [...] -2.0 is below the expected range for age. A Z-score below the expected range for age in a patient with recent fractures and/or chronic corticosteroid treatment is consistent with a diagnosis of osteoporosis. B) In post menopausal women and males over 50, comparison of the measured bone mineral density with the average value in young normal subjects (the T-score) has been found to be useful in [...] -2.0 is below the expected range for age. A Z-score below the expected range for age in a patient with recent fractures and/or chronic corticosteroid treatment is consistent with a diagnosis of osteoporosis. B) In post menopausal women and males over 50, comparison of the measured bone mineral density with the average value in young normal subjects (the T-score) has been found to be useful in [...] signed by: Danielle Trent M.D. Sparkle Reilly WHARF TENDER IMG DXA PROCED URES Final Result from Last 3 Months or Most Recently Relevant to Health Maintenance Insurance [facility] Advance Directives For more information, please contact: [phone] * Full Code (Latest Code Status on File) Date Activated Date Inactivated Comments 06/09/2023 6:34 PM 06/10/2023 11:15 PM Care Teams Technical Operations Vice President Relationship Specialty Start Date End Date Karthik Shah MD [address] [place], [place] [id number] PCP - General Family Medicine 06/26/23 Yaima Munoz MD [facility] [address] [place] [address] Consulting Physician Neuromuscular Medicine 05/27/19 Stephanie Rodríguez MD [facility] [address] [address] Referring Physician Gynecology 06/26/23
--- OUTSIDE RECORDS SUMMARY | 2025-02-01 14:02 | XMS_ITS | Encounter Summary ---
Author Organization [facility] Address [address] [place] [address] Phone Care Team Providers Care Early Childhood Teacher Assistant Name Role Phone Yaima Munoz MD Unavailable [phone] Karthik Shah MD Primary Care Provider [phone] Stephanie Rodríguez MD Unavailable [phone] Encounter Details Date Type Department Care Team (Late st Contact Info) Description 12/24/2024 Results Follow-Up [facility] Medicine Neuro Muscle [address] [facility] Advanced Medicine 6th [place] [address] [place] [address] Yaima Munoz MD [address] [place], [place] [id number] eGFR Social History Tobacco Use Types Packs/Day Years [...] the money to buy more. Never true 12/22/19 25 Within the past 12 months, t he food you bought just didn't last and you didn't have money to get more. Never true 12/21/2024 Personal Safety Answer Date Recorded Have you ever been in or are you currently in a harmful physical or emotional relationship or is someone making you feel afraid or unsafe? 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 Not on file Not on file documented as of this encounter Plan of Treatment Not on file documented as of this encounter Visit Diagnoses Not on filedocumented in this encounter Care Teams Early Childhood Teacher Assistant Relationship Specialty Start Date End Date Karthik Shah MD [address] [place] [address] PCP - General Family Medicine 06/26/23 Yaima Munoz MD [address] [facility] [address] [place] [address] Consulting Physician Neuromuscular Medicine 05/27/19 Stephanie Rodríguez MD [address] [facility] [address] [place], [place] [id number] Referring Physician Gynecology 06/26/23 documented as of this encounter
--- OUTSIDE RECORDS SUMMARY | 2025-02-01 14:02 | XMS_ITS | Encounter Summary ---
Author Organization [facility] Address [address] [place] [address] Phone Care Team Providers Care Labor Expediter Name Role Phone Karthik Shah MD Primary Care Provider [phone] Yaima Munoz MD Unavailable [phone] Karthik Shah MD Primary Care Provider [phone] Stephanie Rodríguez MD Unavailable [phone] Encounter Details Date Type Department Care Team (Late st Contact Info) Description 06/21/2021 Documentation [facility] Medicine Movement Disorders [address] [facility] 6th [place] [address] [place] [address] Yessenia Louis CMA Social History [...] on file Legal Sex Female 2:12 AM SOLDERER TORCH Gender Identity Not on file Sexual Orientation [...] documented as of this encounter Care Teams Labor Expediter Relationship Specialty Start Date End Date Karthik Shah MD PCP - General 10/05/15 06/25/23 Karth[place] [address] PCP - General Family Medicine 06/26/23 Yaima Munoz MD [address] [place] [address] Consulting Physician Neuromuscular Medicine 05/27/19 Stephanie Rodríguez MD [address] [facility] [address] [place] [address] Referring Physician Gynecology 06/26/23 documented as of this encounter
--- OUTSIDE RECORDS SUMMARY | 2025-02-01 14:02 | XMS_ITS | Encounter Summary ---
Author Organization [facility] Address [address] [place] [address] Phone Care Team Providers Care Retail Team Leader Name Role Phone Yaima Munoz MD Unavailable [phone] Karthik Shah MD Primary Care Provider [phone] Stephanie Rodríguez MD Unavailable [phone] Encounter Details Date Type Department Care Team (Latest Contact Info) Description 12/24/2024 Results Follow-Up [facility] Medicine Neuro Muscle [address] 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 [address] [place], [place] [address] Referring Physician Gynecology 06/26/23 documented as of this encounter
--- OUTSIDE RECORDS SUMMARY | 2025-02-01 14:02 | XMS_ITS | Clinical Summary ---
Author Organization [facility] [employer] Address [address] [facility] [place] [address] Care Team Providers Care Supervisory Cbp Officer Name Role Phone Karthik Shah MD Primary Care Provider [phone] Source Comments [facility],non-owned Affiliates and Associated Physician Practices is amultiple site organization consisting of ambulatory clinics and hospital sitesin [place], [place] and [place]. This disclosure is being madepursuant to the Care Everywhere program and may not contain all information available regarding this patient. Last updated 18.[facility] Allergies No known active allergies Medications * Be aware that medications may not be up to date on this document. Alwaysverify current medications with the patient. topiramate (TOPAMAX) 25 MG tablet Take 25 [...] Devices (CRUTCHES) Use as directed. Given in UC 4 Active Additional Information Patient not taking.Reported on 06/12/2019 Immunizations Immunization Administration Dates Next Due TDAP (7yrs+) 04/12/2014 Social History Tobacco Use Types Packs/Day Years Used Date Smoking Tobacco: Never Smokeless Tobacco: Never Alcohol Use Standard Drinks/Week Comments Not Asked 0 (1 standard drink = 0.6 oz pur e alcohol) Comments No Sex and Gender Information Value Date Recorded Sex Assigned at Not on file Legal Sex Female 6:21 AM KIDNEY PULLER Gender Identity Not on file Sexual Orientation Not on file Last Filed Vital Signs Vital Sign Reading Time Taken Comments Blood Pressure 128/80 06/12/2019 10:45 AM KIDNEY PULLER Pulse 79 06/12/2019 10:45 AM KIDNEY PULLER Temperature 37 C (98.6 F) 06/12/2019 10:45 AM KIDNEY PULLER Respiratory Rate 16 06/12/2019 10:45 AM KIDNEY PULLER Oxygen Saturation 99% 06/12/2019 10:45 AM KIDNEY PULLER Inhaled Oxygen Concentration - - Weight 75.8 kg (167 lb) 06/12/2019 10:45 AM KIDNEY PULLER Height 154.9 cm (5' 1) 06/12/2019 10:45 AM KIDNEY PULLER Body Mass Index 31.55 06/12/2019 10:45 AM KIDNEY PULLER Plan of Treatment Health Maintenance Due Date Last Done Comments BONE DENSITY TESTING 1960 COLOGUARD (AGES 45-75) - COL ON CA SCREENING 1958 COLON MONITORING 1958 COLONOSCOPY - COLON CA SCREENING 1958 CT COLONOGRAPHY - COLON CA SCREENING 1960 Colorectal Cancer Screening 1958 FIT - COLON CA SCREENING 1958 FLEX SIG - COLON CA SCREENING 1958 MAMMOGRAM 1958 HEPATITIS C SCREENING 11/01/1976 PNEUMOCOCCAL VACCINE 50+ (1 of 1 - PCV) 2008 ZOSTER VACCINE (1 of 2) 2008 SCREENING FOR DIABETES 06/12/2019 DTAP/TDAP/TD VACCINES (2 - T d or Tdap) 04/12/2024 04/12/2014 DEPRESSION SCREENING 05/05/2024 COVID-19 VACCINE ( - 2023-2 5 season) 2025 INFLUENZA VACCINE (#1) 2025 Respiratory Syncytial Virus (RSV) Vaccine Pt: or [...] to complete this topic MENINGOCOCCAL (Group B) VACC INE SHARED DECISION-MAKING Aged Out No longer eligibl e based on patient's age to complete this topic MENINGOCOCCAL GROUPS A/C/Y/W VACCINE Aged Out No longer eligible b ased on patient's age to complete this topic Insurance [facility] Address: [facility] [id number] [place] [address] [facility] [employer] Care Teams Supervisory Cbp Officer Relationship Specialty Start Date End Date Karthik Shah MD [address] [place] [address] PCP - General Family Medicine 04/12/14
--- OUTSIDE RECORDS SUMMARY | 2025-02-01 14:02 | XMS_ITS | Encounter Summary ---
Author Organization [facility] Address [address] [place] [address] Care Team Providers Care Can Cutter Name Role Phone Karthik Shah MD Primary Care Provider [phone] Encounter Details Date Type Department Care Team (Late st Contact Info) Description 08/03/2018 Lab Requisition [facility] [address] [facility] [place] [id number] [phone] Augusta Soriano MD [address] [facility] [address] [place] [address] Social History Tobacco Use Types Packs/Day Years Used Date Smoking Tobacco: Never Alcohol Use Standard Drinks/Week Comments Not Asked 0 (1 standard drink = 0.6 oz pur e alcohol) Comments No Sex and Gender Information Value Date Recorded Sex Assigned at Not on file Legal Sex Female 6:21 AM FIRE 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 Gender Identity Not on file Sexual Orientation Not on file documented as of this encounter Plan of Treatment Not on file documented as of this encounter Procedures Procedure Name Priority Date/Time Associated Diagnosis Comments DERMATOPATHOLOGY Routine 07/31/2018 12:0 0 AM CDT documented in this encounter Results * DERMATOPATHOLOGY (07/31/2018 12:00 AM CDT) Case Report Dermatopathology Report Case: [id number] Authorizing Provider: Augusta Soriano MD Collected: 07/31/2018 12:00 AM Pathologist: Brian Vallecillo MD Received: 08/03/2018 10:59 AM Specimen: Skin, right calf 3:41 PM CDT DERMATOPATHOLOGY LABORATORY Final Diagnosis Specimen A. 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 Wilson scaly papule. 3:41 PM CDT DERMATOPATHOLOGY LABORATORY Gross Description Specimen A: Received is one formalin filled container labeled with the patient's name and designated right calf. The specimen consists of a shave measuring [id number]. Jar 0. 3:41 PM CDT DERMATOPATHOLOGY LABORATORY [...] characteristic determined by the Dermatopathology Laboratory at [facility], directed by Dr. Irais Vallecillo. These tests need not be, and therefore are not, approved by the [place] Food and Drug Administration. The tests are used for clinical purposes. Billing Codes Specimen Charges Stain Charges 79396 1 3:41 PM CDT DERMATOPATHOLOGY LABORATORY Embedded Images 3:41 PM CDT DERMATOPATHOLOGY LABORATORY Pathology/Cytolog y TISSUE SPECIMEN FROM SKIN / Unknown 07/31/2018 08/03/2018 10:59 AM CDT us Augusta Soriano MD LAB - PATHOLOGY/CYTOLOGY ORD ERABLES Final Result DERMATOPATHOLOGY LABORATORY [facility] - Department of Dermatology [address] [place] [address], 5th [place] [address], [place] [phone] documented in this encounter Visit Diagnoses Not on filedocumented in this encounter Care Teams Can Cutter Relationship Specialty Start Date End Date Karthik Shah MD [address] [place] [id number] PCP - General Family Medicine 04/12/14 documented as of this encounter
--- OUTSIDE RECORDS SUMMARY | 2025-02-01 14:02 | XMS_ITS | Clinical Summary ---
Author Organization [facility] Address [address] [place] [address] Care Team Providers Care Kinesiology Professor Name Role Phone Karthik Shah MD Primary Care Provider [phone] Allergies No known active allergies Medications dicyclomine [...] Comments Blood Pressure 140/75 04/16/2023 3:07 PM RESEARCH ANALYST Pulse 63 04/16/2023 3:07 PM RESEARCH ANALYST Temperature 36.3 C (97.3 F) 04/16/2023 3:07 PM RESEARCH ANALYST Respiratory Rate 18 04/16/2023 3:07 PM RESEARCH ANALYST Oxygen Saturation 99% 04/16/2023 3:07 PM RESEARCH ANALYST Inhaled Oxygen Concentration - - Weight 81.6 kg (180 lb) 04/16/2023 11:37 AM RESEARCH ANALYST Height 157.5 cm (5' 2) 04/16/2023 11:37 AM RESEARCH ANALYST Body Mass Index 32.92 04/16/2023 11:37 AM RESEARCH ANALYST Plan of Treatment Health Maintenance Due Date Last Done Comments Colorectal Cancer Screening Colonoscopy (10 Years) 1958 Hepatitis C 1976 Mammogram Screening 1998 Pneumococcal Vaccine: 50+ Years (1 of 1 - PCV) 2008 Zoster Vaccines (1 of 2) 2008 Dexa Scan (General) 11/07/2023 DTaP, Tdap and Td Vaccines (2 - Td or Tdap) 04/12/2024 04/12/2014 COVID-19 Vaccine ( - 2024- season) 2025 04/04/2023, 03/15/2022, 04/13/2021, Additional history exists RSV Immunization or 60+ Years (1 - [...] to complete this topic Insurance Care Teams Kinesiology Professor Relationship Specialty Start Date End Date Karthik Shah MD [address] [address] PCP - General 03/31/13
--- OUTSIDE RECORDS SUMMARY | 2025-02-01 14:02 | XMS_ITS | Encounter Summary ---
Author Organization [facility] Address [address] [place] [address] Phone Care Team Providers Care Telemetry Registered Nurse Name Role Phone Karthik Shah MD Primary Care Provider [phone] Yaima Munoz MD Unavailable [phone] Karthik Shah MD Primary Care Provider [phone] Stephanie Rodríguez MD Unavailable [phone] Reason for Visit * Reason Onset Date [...] (Late st Contact Info) Description 05/12/2023 Telephone [facility] [address] 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 Not on file Not on file documented as of this encounter Plan of Treatment Not on file documented as of this encounter Visit Diagnoses Not on filedocumented in this encounter Care Teams Telemetry Registered Nurse Relationship Specialty Start Date End Date Karthik Shah MD PCP - General 10/05/15 06/25/23 Karthik Shah MD [address] [place], [place] [id number] PCP - General Family Medicine 06/26/23 Yaima Munoz MD [address] [place] [address] Consulting Physician Neuromuscular Medicine 05/27/19 Stephanie Rodríguez MD [address] [facility] [address] [place], [place] [address] Referring Physician Gynecology 06/26/23 documented as of this encounter
== END 2025-02-01 13:47 | disposition home or self-care (01) ==
PROVIDERS: PCP Family Medicine; Visit Provider Nurse Practitioner Family
DX: M54.50 Low back pain, unspecified (principal)
CPT/HCPCS: 72114

== ENCOUNTER 2025-04-07 14:12 | Outpatient (CLI) | payer OTHER, SELFPAY ==
--- NOTE | ~2025-04-07 | MR_ITS ---
EXAMINATION: MR lumbar spine wo con DATE: 04/07/2025 15:33 INDICATION: Other spondylosis with radiculopathy. TECHNIQUE: Magnetic resonance imaging (MRI) of the lumbar spine was performed without intravenous contrast. Sequences included sagittal T2-weighted FSE, sagittal T2-weighted FS FSE, sagittal T1-weighted FSE, and axial T2-weighted FSE. COMPARISON: Lumbar spine MRI 05/27/2008 FINDINGS: There is 4 degrees levocurvature of thoracolumbar spine. There is 3 mm anterolisthesis of L3 on L4. Vertebral body heights are normal. There is mildly decreased disc height at L2-L3 and L3-L4 and moderately decreased disc height at L5-S1. The distal spinal cord signal intensity is normal. The conus medullaris is at T12-L1. There are cysts in the kidneys measuring up to 2.4 cm on the right. The following disc levels are specifically discussed: L1-L2: There is a central protrusion. There is mild bilateral facet joint osteoarthritis. There is no neural foraminal stenosis. There is mild central canal stenosis. L2-L3: The disc is bulging. There is mild bilateral facet joint osteoarthritis. There is mild bilateral neural foraminal stenosis. There is mild central canal stenosis. L3-L4: The disc is bulging and has an annular fissure. There is severe bilateral facet joint osteoarthritis. There is mild bilateral neural foraminal stenosis. There is moderate central canal stenosis. L4-L5: The disc is bulging and has an annular fissure. There is moderate bilateral facet joint osteoarthritis. There is mild bilateral neural foraminal stenosis. There is mild central canal stenosis. L5-S1: The disc is bulging and has an annular fissure. There is severe bilateral facet joint osteoarthritis. There is mild bilateral neural foraminal stenosis. There is mild central canal stenosis. IMPRESSION: 1. Moderate lumbar spondylosis, worsened from 05/27/2008. Reviewed, dictated and finalized at location E. UM FRAME OPERATOR
== END 2025-04-07 14:13 | disposition home or self-care (01) ==
PROVIDERS: PCP Family Medicine; Visit Provider Family Medicine
DX: M47.27 Other spondylosis with radiculopathy, lumbosacral region (principal)
CPT/HCPCS: 72148

== ENCOUNTER 2025-04-16 08:53 | Outpatient (CLI) | payer OTHER, SELFPAY ==
--- OUTSIDE RECORDS SUMMARY | 2025-04-16 08:55 | XMS_ITS | Clinical Summary ---
Author Organization [facility] al Address [address] [place] [address] Care Team Providers Care Hotel Administrative Assistant Name Role Phone Yaima Munoz MD Unavailable [phone] Karthik Shah MD Primary Care Provider [phone] Stephanie Rodríguez MD Unavailable [phone] Allergies No known active allergies Medications lamoTRIgine [...] Encounters Date Type Department Care Team Description 03/29/2025 7:30 AM WINCHER Infusion [facility] [address] [place] [phone] Immune myopathy (Primary Dx) 03/28/2025 7:30 AM WINCHER Infusion [facility]fusion [facility] [address] [place] [phone] Immune myopathy (Primary Dx) 03/01/2025 7:30 AM CDT Infusion [facility]fusion [facility] [address] [place] [phone] Halina Burt RN Immune myopathy (Primary Dx) 02/28/2025 7:30 AM CDT Infusion [facility]fusion [facility] [address] [place] [phone] Marcy Flores RN Immune myopathy (Primary Dx) 02/03/2025 7:30 AM CDT Infusion [facility] [address] [place] [phone] Immune myopathy (Primary Dx) 01/25/2025 7:30 AM CDT Infusion [facility]fusion [facility] [address] [place] [phone] Immune myopathy (Primary Dx) 01/24/2025 7:30 AM CDT Infusion [facility]fusion [facility] [address] [place] [phone] Immune myopathy (Primary Dx) 01/24/2025 Orders Only [facility] Out[facility]fusion Center [address] [place] [phone] Monica Arnold RN 01/20/2025 Orders Only [facility] Neuro Muscle [address] [place] [address] for Advanced Medicine 6th [place] [address] [place] [address] Epi Colón, RN 01/20/2025 Orders Only [facility] Outpatient [facility]fusion Center [address] [place] [phone] [place], Halina Woodson RN from Last 3 Months Immunizations Immunization [...] the money to buy more. Never true 03/28/20 25 Within the past 12 months, t he food you bought just didn't last and you didn't have money to get more. Never true 03/28/2025 Personal Safety Answer Date Recorded Have you ever been in or are you currently in a harmful physical or emotional relationship or is someone making you feel afraid or unsafe? 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 on file Not on file Last Filed Vital Signs Vital Sign Reading Time Taken Comments Blood Pressure 140/65 03/29/2025 10:40 AM WINCHER Pulse 62 03/29/2025 10:40 AM WINCHER Temperature 36.2 C (97.1 F) 03/29/2025 7:20 AM WINCHER Respiratory Rate 15 03/29/2025 7:20 AM WINCHER Oxygen Saturation 97% 03/29/2025 10:40 AM WINCHER Inhaled Oxygen Concentration - - Weight 80.5 kg (177 lb 8 oz) 03/28/2025 7:31 AM WINCHER Height 157.5 cm (5' 2) 03/28/2025 7:31 AM WINCHER Body Mass Index 32.47 03/28/2025 7:31 AM WINCHER Plan of Treatment Health Maintenance Due Date [...] Assessment 06/10/2024 06/10/2023, 01/09/20 18 Covid-19 Vaccine ( - 2024-2 6 season) 2025 04/04/2023, 03/15/2022, 04/13/2021, Additional history exists Influenza Vaccine (#1) 2025 , 04/04/2023, 03/05/2023, Additional history exists Breast Cancer Screening-Mammogram 07/06/2025 07/06/2024, 06/26/2023, 05/28/2022, Additional history exists Hepatitis C Screening Completed 06/09/2023 Procedures Procedure Name Priority Date/Time Associated Diagnosis Comments SCREENING MAMMOGRAM BILATERAL W SANJAY Schedule Routine, Read Routine (OP Routine) 07/06/2024 12:49 PM WINCHER Screening mammogram, encounter for HEPATITIS PANEL, ACUTE STAT 06/09/2023 10:04 PM WINCHER DEXA AXIAL SKELETON BONE DENSITY 1 OR MORE SITES Schedule Routine, Read Routine (OP Routine) 07/22/2018 11:00 AM CDT Encounter for screening for osteoporosis Asymptomatic menopausal state from Last 3 Months or Most Recently Relevant to Health Maintenance Results * Screening Mammogram Bilateral W Sanjay (07/06/2024 12:49 PM WINCHER) Anatomical Region Laterality Modality Breast Bilateral Mammography Narrative 07/07/2024 10:31 AM WINCHER Mammogram Technique: Bilateral Digital Breast Tomosynthesis, Bilateral C-view 2D Screening mammogram. Views obtained: bilateral craniocaudal and bilateral mediolateral oblique. Computer Aided Detection was performed. Mammogram Findings: The present examination has been compared to prior imaging studies performed at [facility] on 06/05/2021, 05/28/2022 and 06/26/2023. There are [...] compared to prior imaging studies performed at [facility] on 06/05/2021, 05/28/2022 and 06/26/2023. There are scattered areas of fibroglandular density. There is no suspicious abnormality in either breast. Impression: There is no mammographic evidence of malignancy. Annual screening mammography is recommended. OVERALL FINAL ASSESSMENT: BI-RADS CATEGORY 1: Negative. us Self Screening Mammogram IMG MAMMO PROCEDURES Fi nal Result * Hepatitis panel, acute Blood (06/09/2023 10:04 PM WINCHER) Hep A IgM Nonreactive Nonreactive [facility] Hep B core IgM Nonreactive Nonreactive [facility] Hep C Ab Nonreactive Nonreactive [facility] Comment:Antibodies to HCV no t detected. Does NOT exclude the possibility of recent exposure to HCV. Current interpretive data was last revised on 22 HepBsAg Nonreactive Nonreactive [facility] Blood 06/09/2023 10:0 4 PM WINCHER 06/09/2023 10:15 PM WINCHER Diogenes Salomon MD PhD LAB MICROBIOLOGY - GENERAL ORDERABLES Final Result [facility] Department [place] [address] * Dexa Axial Skeleton Bone Density 1 [...] Most Recently Relevant to Health Maintenance Insurance [facility] EMPL[employer]EE HEALTH PLANS Address: [address] [place] [address] [facility] Advance Directives For more information, please contact: [phone] * Full Code (Latest Code Status on File) Date Activated Date Inactivated Comments 06/09/2023 6:34 PM 06/10/2023 11:15 PM Care Teams Hotel Administrative Assistant Relationship Specialty Start Date End Date Karthik Shah MD [address] [place] [address] PCP - General Family Medicine 06/26/23 Yaima Munoz MD [address] [place] [address] Consulting Physician Neuromuscular Medicine 05/27/19 Stephanie Rodríguez MD [facility] [facility] [place] [address] Referring Physician Gynecology 06/26/23
--- OUTSIDE RECORDS SUMMARY | 2025-04-16 08:55 | XMS_ITS | Clinical Summary ---
Author Organization [facility] Address [address] [place] [address] Care Team Providers Care Subacute Nurse Name Role Phone Karthik Shah MD Primary Care Provider [phone] Allergies No known active allergies Medications dicyclomine [...] Comments Blood Pressure 140/75 04/16/2023 3:07 PM DISPOSITION CLERK Pulse 63 04/16/2023 3:07 PM DISPOSITION CLERK Temperature 36.3 C (97.3 F) 04/16/2023 3:07 PM DISPOSITION CLERK Respiratory Rate 18 04/16/2023 3:07 PM DISPOSITION CLERK Oxygen Saturation 99% 04/16/2023 3:07 PM DISPOSITION CLERK Inhaled Oxygen Concentration - - Weight 81.6 kg (180 lb) 04/16/2023 11:37 AM DISPOSITION CLERK Height 157.5 cm (5' 2) 04/16/2023 11:37 AM DISPOSITION CLERK Body Mass Index 32.92 04/16/2023 11:37 AM DISPOSITION CLERK Plan of Treatment Health Maintenance Due Date Last Done Comments Colorectal Cancer Screening Colonoscopy (10 Years) 1958 Hepatitis C 1976 Mammogram Screening 1998 Pneumococcal Vaccine: 50+ Years (1 of 1 - PCV) 2008 Zoster Vaccines (1 of 2) 2008 Dexa Scan (General) 11/07/2023 DTaP, Tdap and Td Vaccines (2 - Td or Tdap) 04/12/2024 04/12/2014 COVID-19 Vaccine ( season) 2025 04/04/2023, 03/15/2022, 04/13/2021, Additional history exists Influenza Adult (#1) 2025 04/04/2023, 02/25/2022, 03/05/2015 RSV Immunization or 60+ Years (1 - 1-dose 75+ series) 2033 Hepatitis A Vaccines Aged Out No long er eligible based on patient's age to complete this topic Meningococcal B Vaccine Aged Out No l onger eligible based on patient's age to complete this topic Meningococcal Vaccine Aged Out No edgar arabella eligible based on patient's age to complete this topic RSV Immunizations Under 20 Months Aged Out No longer eligible based on patient's age to complete this topic Insurance Care Teams Subacute Nurse Relationship Specialty Start Date End Date Karthik Shah MD [address] [address] [facility] - General 03/31/13
--- OUTSIDE RECORDS SUMMARY | 2025-04-16 08:55 | XMS_ITS | Clinical Summary ---
Author Organization [facility] Address [address] [place] [address] Care Team Providers Care Machine Inspector Name Role Phone Karthik Shah MD Primary Care Provider [phone] Source Comments [employer],non-owned Affiliates and Associated Physician Practices is amultiple site organization consisting of ambulatory clinics and hospital sitesin [place], [place], [place] and [place]. This disclosure is being madepursuant to the Care Everywhere program and may not contain all information available regarding this patient. Last updated 18.[employer] Allergies No known active allergies Medications * [...] on file Legal Sex Female 6:21 AM PRICING ANALYST Gender Identity Not on file Sexual Orientation Not on file Last Filed Vital Signs Vital Sign Reading Time Taken Comments Blood Pressure 128/80 06/12/2019 10:45 AM PRICING ANALYST Pulse 79 06/12/2019 10:45 AM PRICING ANALYST Temperature 37 C (98.6 F) 06/12/2019 10:45 AM PRICING ANALYST Respiratory Rate 16 06/12/2019 10:45 AM PRICING ANALYST Oxygen Saturation 99% 06/12/2019 10:45 AM PRICING ANALYST Inhaled Oxygen Concentration - - Weight 75.8 kg (167 lb) 06/12/2019 10:45 AM PRICING ANALYST Height 154.9 cm (5' 1) 06/12/2019 10:45 AM PRICING ANALYST Body Mass Index 31.55 06/12/2019 10:45 AM PRICING ANALYST Plan of Treatment Health Maintenance Due [...] DEPRESSION SCREENING 05/05/2024 COVID-19 VACCINE ( - 2024-2 6 season) 2025 INFLUENZA VACCINE (#1) 2025 Respiratory [...] patient's age to complete this topic Insurance [facility] Address: [facility] [id number] [place] [address] [facility] CIGNA Care Teams Machine Inspector Relationship Specialty Start Date End Date Karthik Shah MD [address] [place] [address] PCP - General Family Medicine 04/12/14
--- OUTSIDE RECORDS SUMMARY | 2025-04-16 08:55 | XMS_ITS | Encounter Summary ---
Author Organization [facility] Address [address] [facility] [place] [address] Care Team Providers Care Technical Support Consultant Name Role Phone Karthik Shah MD Primary Care Provider [phone] Encounter Details Date Type Department Care Team (Late st Contact Info) Description 08/03/2018 Lab Requisition [facility] Care DermPath Lab [address] [facility], [place] [address] [phone] Augusta Soriano MD [address] [facility] [address] [place] [address] Social History Tobacco Use Types Packs/Day Years Used Date Smoking Tobacco: Never Alcohol Use Standard Drinks/Week Comments Not Asked 0 (1 standard drink = 0.6 oz pur e alcohol) Comments No Sex and Gender Information Value Date Recorded Sex Assigned at Not on file Legal Sex Female 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 Gender Identity Not on file Sexual Orientation Not on file documented as of this encounter Plan of Treatment Not on file documented as of this encounter Procedures Procedure Name Priority Date/Time Associated Diagnosis Comments DERMATOPATHOLOGY Routine 07/31/2018 12:0 0 AM CDT documented in this encounter Results * DERMATOPATHOLOGY (07/31/2018 12:00 AM CDT) Case Report Dermatopathology Report Case: [id number] Authorizing Provider: Augusta Soriano MD Collected: 07/31/2018 12:00 AM Pathologist: Brian Vallecillo MD Received: 08/03/2018 10:59 AM Specimen: Skin, right calf 3:41 PM CDT DERMATOPATHOLOGY LABORATORY Final Diagnosis Specimen A. 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 [place] scaly papule. 3:41 PM CDT DERMATOPATHOLOGY LABORATORY Gross Description Specimen A: Received is one formalin filled container labeled with the patient's name and designated right calf. The specimen consists of a shave measuring [id number]. Jar 0. 3:41 PM CDT DERMATOPATHOLOGY LABORATORY [...] characteristic determined by the Dermatopathology Laboratory at [facility], directed by Dr. Irais Vallecillo. These tests need not be, and therefore are not, approved by the [place] Food and Drug Administration. The tests are used for clinical purposes. Billing Codes Specimen Charges Stain Charges 71920 1 3:41 PM CDT DERMATOPATHOLOGY LABORATORY Embedded Images 3:41 PM CDT DERMATOPATHOLOGY LABORATORY Pathology/Cytolog y TISSUE SPECIMEN FROM SKIN / Unknown 07/31/2018 08/03/2018 10:59 AM CDT us Augusta Soriano MD LAB - PATHOLOGY/CYTOLOGY ORD ERABLES Final Result DERMATOPATHOLOGY LABORATORY [facility] - Department of Dermatology [address] [place] [address], 5th [place] [address], [facility] [phone] documented in this encounter Visit Diagnoses Not on filedocumented in this encounter Care Teams Technical Support Consultant Relationship Specialty Start Date End Date Karthik Shah MD [address] [place] [address] PCP - General Family Medicine 04/12/14 documented as of this encounter
--- OUTSIDE RECORDS SUMMARY | 2025-04-16 08:55 | XMS_ITS | Encounter Summary ---
Author Organization [facility] Address [address] [place] [address] Phone Care Team Providers Care Senior Asp Net Developer Name Role Phone Karthik Shah MD Primary Care Provider [phone] Yaima Munoz MD Unavailable [phone] Karthik Shah MD Primary Care Provider [phone] Stephanie Rodríguez MD Unavailable [phone] Reason for Visit * Reason Onset Date [...] (Late st Contact Info) Description 05/12/2023 Telephone [facility] Neuro Muscle [address] [facility] Advanced Medicine 6th [place] [address] [place] [address] Nevaeh Colón, [place] and [...] on file 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 Gender Identity Not on file Sexual Orientation Not on file 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 Not on file Not on file documented as of this encounter Plan of Treatment Not on file documented as of this encounter Visit Diagnoses Not on filedocumented in this encounter Care Teams Senior Asp Net Developer Relationship Specialty Start Date End Date Karthik Shah MD PCP - General 10/05/15 06/25/23 Karthik Shah MD [address] [place], [place] [id number] PCP - General Family Medicine 06/26/23 Yaima Munoz MD [address] [place] [address] Consulting Physician Neuromuscular Medicine 05/27/19 Stephanie Rodríguez MD [address] [facility] [address] [place], [place] [address] Referring Physician Gynecology 06/26/23 documented as of this encounter
--- OUTSIDE RECORDS SUMMARY | 2025-04-16 08:55 | XMS_ITS | Encounter Summary ---
Author Organization [facility] Address [address] [place] [address] Phone Care Team Providers Care Gripper Machine Operator Name Role Phone Karthik Shah MD Primary Care Provider [phone] Yaima Munoz MD Unavailable [phone] Karthik Shah MD Primary Care Provider [phone] Stephanie Rodríguez MD Unavailable [phone] Encounter Details Date Type Department Care Team (Late st Contact Info) Description 06/21/2021 Documentation [facility] Medicine Movement Disorders [address] [facility] 6th [place] [address] [place] [address] Yessenia Louis CMA Social History [...] on file 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
[2025-04-16 09:20] LABS: Hematocrit 36.3 % (37.0-47.0); Hemoglobin 12.2 g/dL (12.0-15.0); Immature Granulocyte Percent A 0.2 % (0-0.5); Lymphocytes Absolute Auto 0.78 K/mm3 (0.9-3.2); Mean Corpuscular HGB Conc 33.6 g/dl (32-36); Mean Corpuscular Hemoglobin 31.9 pg (26-34); Mean Corpuscular Volume 94.8 fl (80-100); Nucleated Red Blood Cells Absolute Auto 0.000 K/mm3 (0.0-0.012); Nucleated Red Blood Cells Perc 0.0 % (0.0-0.2); Platelet Count Result 271 k/mm3 (150-375); Red Blood Count 3.83 M/mm3 (4.2-5.4); White Blood Count 4.1 K/mm3 (4.5-10.0)
[2025-04-16 09:33] LABS: Alanine Aminotransferase 13 U/L (6-35); Albumin Level 4.2 g/dL (3.5-5.1); Alkaline Phosphatase 88 U/L (38-126); Anion Gap 4 mmol/L (4-12); Aspartate Amino Transferase 30 U/L (14-36); Bilirubin,Total 0.4 mg/dL (0.2-1.3); Blood Urea Nitrogen 25 mg/dL (7-17); Calcium 9.0 mg/dL (8.4-10.2); Carbon Dioxide 24 mmol/L (22-30); Chloride 108 mmol/L (98-107); Estimated Glomerular Filt Rate 54; Glucose 90 mg/dL (65-110); Potassium 5.2 mmol/L (3.4-5.0); Sodium 136 mmol/L (137-145); Total Protein 7.9 g/dL (6.3-8.2)
[2025-04-16 10:42] LABS: IFOB Positive Control Positive; Immunochemical Fecal Occult Bl Negative (N)
[2025-04-16 11:13] LABS: Toxigenic C. Diff NEGATIVE (NEGATIVE)
== END 2025-04-16 08:54 | disposition home or self-care (01) ==
PROVIDERS: PCP Family Medicine; Visit Provider Nurse Practitioner Adult Health
DX: R19.7 Diarrhea, unspecified (principal); R19.8 Other specified symptoms and signs involving the digestive system and abdomen; R15.9 Full incontinence of feces; R14.3 Flatulence
CPT/HCPCS: 36415; 80053; 82274; 85025; 87045; 87046; 87177; 87427; 87493

== ENCOUNTER 2025-04-21 09:23 | Outpatient (CLI) | payer OTHER, SELFPAY ==
--- OUTSIDE RECORDS SUMMARY | 2025-04-21 10:18 | XMS_ITS | Encounter Summary ---
Author Organization [facility] Address [address] [facility] [place] [address] Care Team Providers Care Trim Attacher Name Role Phone Karthik Shah MD Primary Care Provider [phone] Encounter Details Date Type Department Care Team (Late st Contact Info) Description 08/03/2018 Lab Requisition [facility] Care DermPath Lab [address] [facility] [place] [phone] Augusta Soriano MD [address] [facility] [address] [place] [address] Social History Tobacco Use Types Packs/Day Years Used Date Smoking Tobacco: Never Alcohol Use Standard Drinks/Week Comments Not Asked 0 (1 standard drink = 0.6 oz pur e alcohol) Comments No Sex and Gender Information Value Date Recorded Sex Assigned at Not on file 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 Gender Identity Not on file Sexual Orientation Not on file documented as of this encounter Plan of Treatment Not on file documented as of this encounter Procedures Procedure Name Priority Date/Time Associated Diagnosis Comments DERMATOPATHOLOGY Routine 07/31/2018 12:0 0 AM CDT documented in this encounter Results * DERMATOPATHOLOGY (07/31/2018 12:00 AM CDT) Case Report Dermatopathology Report Case: [id number] Authorizing Provider: Augusta Soriano MD Collected: 07/31/2018 12:00 AM Pathologist: Brian Vallecillo MD Received: 08/03/2018 10:59 AM Specimen: Skin, right calf 3:41 PM CDT DERMATOPATHOLOGY LABORATORY Final Diagnosis Specimen A. 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 [place] scaly papule. 3:41 PM CDT DERMATOPATHOLOGY LABORATORY Gross Description Specimen A: Received is one formalin filled container labeled with the patient's name and designated right calf. The specimen consists of a shave measuring [id number]. Jar 0. 3:41 PM CDT DERMATOPATHOLOGY LABORATORY [...] characteristic determined by the Dermatopathology Laboratory at [facility], directed by Dr. Irais Vallecillo. These tests need not be, and therefore are not, approved by the [place] Food and Drug Administration. The tests are used for clinical purposes. Billing Codes Specimen Charges Stain Charges [id number] 1 3:41 PM CDT DERMATOPATHOLOGY LABORATORY Embedded Images 3:41 PM CDT DERMATOPATHOLOGY LABORATORY Pathology/Cytolog y TISSUE SPECIMEN FROM SKIN / Unknown 07/31/2018 08/03/2018 10:59 AM CDT us Augusta Soriano MD LAB - PATHOLOGY/CYTOLOGY ORD ERABLES Final Result DERMATOPATHOLOGY LABORATORY [facility] - Department of Dermatology [address] [place] [address], 5th [place] [address], [facility] [phone] documented in this encounter Visit Diagnoses Not on filedocumented in this encounter Care Teams Trim Attacher Relationship Specialty Start Date End Date Karthik Shah MD [address] [place] [address] PCP - General Family Medicine 04/12/14 documented as of this encounter
--- OUTSIDE RECORDS SUMMARY | 2025-04-21 10:19 | XMS_ITS | Clinical Summary ---
Author Organization [facility] Address [address] [facility] [place] [address] Care Team Providers Care Office Service Coordinator Name Role Phone Karthik Shah MD Primary Care Provider [phone] Source Comments [facility],non-owned Affiliates and Associated Physician Practices is amultiple site organization consisting of ambulatory clinics and hospital sitesin [place], [place], [place] and [place]. This disclosure is being madepursuant to the Care Everywhere program and may not contain all information available regarding this patient. Last updated 18.[facility] Allergies No known active allergies Medications * [...] on file Legal Sex Female 6:21 AM CHECKER DUMP GROUNDS Gender Identity Not on file Sexual Orientation Not on file Last Filed Vital Signs Vital Sign Reading Time Taken Comments Blood Pressure 128/80 06/12/2019 10:45 AM CHECKER DUMP GROUNDS Pulse 79 06/12/2019 10:45 AM CHECKER DUMP GROUNDS Temperature 37 C (98.6 F) 06/12/2019 10:45 AM CHECKER DUMP GROUNDS Respiratory Rate 16 06/12/2019 10:45 AM CHECKER DUMP GROUNDS Oxygen Saturation 99% 06/12/2019 10:45 AM CHECKER DUMP GROUNDS Inhaled Oxygen Concentration - - Weight 75.8 kg (167 lb) 06/12/2019 10:45 AM CHECKER DUMP GROUNDS Height 154.9 cm (5' 1) 06/12/2019 10:45 AM CHECKER DUMP GROUNDS Body Mass Index 31.55 06/12/2019 10:45 AM CHECKER DUMP GROUNDS Plan of Treatment Health Maintenance Due Date [...] patient's age to complete this topic Insurance [facility] Address: [facility] [id number] [place] [address] [facility] CIGNA Care Teams Office Service Coordinator Relationship Specialty Start Date End Date Karthik Shah MD [address] [place] [address] PCP - General Family Medicine 04/12/14
[2025-04-21 10:57] LABS: Hematocrit 36.7 % (37.0-47.0); Hemoglobin 12.4 g/dL (12.0-15.0); Immature Granulocyte Percent A 0.6 % (0-0.5); Lymphocytes Absolute Auto 0.81 K/mm3 (0.9-3.2); Mean Corpuscular HGB Conc 33.8 g/dl (32-36); Mean Corpuscular Hemoglobin 32.0 pg (26-34); Mean Corpuscular Volume 94.6 fl (80-100); Nucleated Red Blood Cells Absolute Auto 0.000 K/mm3 (0.0-0.012); Nucleated Red Blood Cells Perc 0.0 % (0.0-0.2); Platelet Count Result 290 k/mm3 (150-375); Red Blood Count 3.88 M/mm3 (4.2-5.4); White Blood Count 3.2 K/mm3 (4.5-10.0)
[2025-04-21 11:27] LABS: Anion Gap 5 mmol/L (4-12); Blood Urea Nitrogen 19 mg/dL (7-17); Calcium 9.2 mg/dL (8.4-10.2); Carbon Dioxide 27 mmol/L (22-30); Chloride 107 mmol/L (98-107); Estimated Glomerular Filt Rate 48; Glucose 77 mg/dL (65-110); Potassium 4.4 mmol/L (3.4-5.0); Sodium 139 mmol/L (137-145)
== END 2025-04-21 09:24 | disposition home or self-care (01) ==
PROVIDERS: PCP Family Medicine; Visit Provider Nurse Practitioner Adult Health
DX: R79.9 Abnormal finding of blood chemistry, unspecified (principal); D64.9 Anemia, unspecified; I10 Essential (primary) hypertension; R15.9 Full incontinence of feces; R19.7 Diarrhea, unspecified
CPT/HCPCS: 36415; 80048; 85025

== ENCOUNTER 2025-05-02 15:40 | Outpatient (CLI) | payer OTHER, SELFPAY ==
--- NOTE | ~2025-05-02 | CT_ITS ---
EXAMINATION: CT abdomen pelvis wo con DATE: 05/02/2025 15:44 INDICATION: Diarrhea TECHNIQUE: Computed tomography (CT) of the abdomen and pelvis was performed without intravenous contrast. Automated exposure control and iterative reconstruction technique were employed. The dose-length product was 694.89 mGy-cm. COMPARISON: None FINDINGS: Mild discoid atelectasis at the left lower lobe. Heart size is normal. No pericardial or pleural effusion. Cholecystectomy clips the gallbladder fossa. Liver, spleen, pancreas and bilateral adrenal glands are normal. There are multiple bilateral renal cysts the largest on the right measuring 2.9 cm. There are few tiny parenchymal calcifications at the periphery of the left kidney. There is liquid stool layering in the ascending and transverse colon consistent with given history of nonspecific diarrhea. No abnormal bowel wall thickening or obstruction. Appendix is normal. Bladder is normal. The uterus is not identified and has likely been surgically resected. 2 cm left adnexal cyst. Right adnexa is unremarkable. No free intraperitoneal gas or fluid. No pathologically enlarged abdominal or pelvic lymphadenopathy. Mild lumbar spondylosis. IMPRESSION: 1. Liquids stool in the colon consistent with given history of diarrhea. No other acute intra-abdominal/pelvic process. Reviewed, dictated and finalized at location A. ONTOLOGICAL HELPER IMPRESSION: 1. Liquids stool in the colon consistent with given history of diarrhea. No oth er acute intra-abdominal/pelvic process.
--- OUTSIDE RECORDS SUMMARY | 2025-05-02 15:32 | XMS_ITS | Clinical Summary ---
Author Organization [facility] Social [facility] Address [address] [facility] [place] [address] Care Team Providers Care Currency Examiner Name Role Phone Karthik Shah MD Primary Care Provider [phone] Source Comments [facility],non-owned Affiliates and Associated Physician Practices is amultiple site organization consisting of ambulatory clinics and hospital sitesin [place], [place], [place] and [place]. This disclosure is being madepursuant to the Care Everywhere program and may not contain all information available regarding this patient. 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 Gender Identity Not on file Sexual Orientation Not on file Last Filed Vital Signs Vital Sign Reading Time Taken Comments Blood Pressure 128/80 06/12/2019 10:45 AM COLLAR FOLDER OPERATOR Pulse 79 06/12/2019 10:45 AM COLLAR FOLDER OPERATOR Temperature 37 C (98.6 F) 06/12/2019 10:45 AM COLLAR FOLDER OPERATOR Respiratory Rate 16 06/12/2019 10:45 AM COLLAR FOLDER OPERATOR Oxygen Saturation 99% 06/12/2019 10:45 AM COLLAR FOLDER OPERATOR Inhaled Oxygen Concentration - - Weight 75.8 kg (167 lb) 06/12/2019 10:45 AM COLLAR FOLDER OPERATOR Height 154.9 cm (5' 1) 06/12/2019 10:45 AM COLLAR FOLDER OPERATOR Body Mass Index 31.55 06/12/2019 10:45 AM COLLAR FOLDER OPERATOR Plan of Treatment Health Maintenance Due Date [...] patient's age to complete this topic Insurance [facility] Address: [address] [place] [address] [employer] Care Teams Currency Examiner Relationship Specialty Start Date End Date Karthik Shah MD [address] [place] [address] PCP - General Family Medicine 04/12/14
--- OUTSIDE RECORDS SUMMARY | 2025-05-02 15:32 | XMS_ITS | Encounter Summary ---
Author Organization [facility] Address [address] [place] [address] Phone Care Team Providers Care Pulpwood Contractor Name Role Phone Karthik Shah MD Primary Care Provider [phone] Yaima Munoz MD Unavailable [phone] Karthik Shah MD Primary Care Provider [phone] Stephanie Rodríguez MD Unavailable [phone] Reason for Visit * Reason Onset Date [...] (Late st Contact Info) Description 05/12/2023 Telephone [facility] Neuro Muscle [address] [facility] 6th [place] [address] [place] [address] Nevaeh Colón, [place] and [...] on file Legal Sex Female 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 RN Gender Identity Not on file Sexual Orientation Not on file 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 Not on file Not on file documented as of this encounter Plan of Treatment Not on file documented as of this encounter Visit Diagnoses Not on filedocumented in this encounter Care Teams Pulpwood Contractor Relationship Specialty Start Date End Date Karthik Shah MD PCP - General 10/05/15 06/25/23 Karthik Shah MD [address] [place] [address] PCP - General Family Medicine 06/26/23 Yaima Munoz MD [address] [place] [address] Consulting Physician Neuromuscular Medicine 05/27/19 Stephanie Rodríguez MD [address] [facility] [address] [place], [place] [id number] Referring Physician Gynecology 06/26/23 documented as of this encounter
--- OUTSIDE RECORDS SUMMARY | 2025-05-02 15:32 | XMS_ITS | Encounter Summary ---
Author Organization [facility] Health Address [address] [facility] [place] [address] Care Team Providers Care Menswear Salesperson Name Role Phone Karthik Shah MD Primary Care Provider [phone] Encounter Details Date Type Department Care Team (Late st Contact Info) Description 08/03/2018 Lab Requisition [facility] Care DermPath Lab [address] [facility], [place] [address] [phone] Augusta Soriano MD [address] [facility] 3 [place] [address] Social History Tobacco Use Types Packs/Day Years Used Date Smoking Tobacco: Never Alcohol Use Standard Drinks/Week Comments Not Asked 0 (1 standard drink = 0.6 oz pur e alcohol) Comments No Sex and Gender Information Value Date Recorded Sex Assigned at Not on file Legal Sex Female 6:21 AM NEW GRAD RN Gender Identity Not on file Sexual Orientation Not on file documented as of this encounter Plan of Treatment Not on file documented as of this encounter Procedures Procedure Name Priority Date/Time Associated Diagnosis Comments DERMATOPATHOLOGY Routine 07/31/2018 12:0 0 AM CDT documented in this encounter Results * DERMATOPATHOLOGY (07/31/2018 12:00 AM CDT) Case Report Dermatopathology Report Case: [id number] Authorizing Provider: Augusta Soriano MD Collected: 07/31/2018 12:00 AM Pathologist: Brian Vallecillo MD Received: 08/03/2018 10:59 AM Specimen: Skin, right calf 3:41 PM CDT DERMATOPATHOLOGY LABORATORY Final Diagnosis Specimen A. 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 [place] scaly papule. 3:41 PM CDT DERMATOPATHOLOGY LABORATORY Gross Description Specimen A: Received is one formalin filled container labeled with the patient's name and designated right calf. The specimen consists of a shave measuring 6u4m4mb. Jar 0. 3:41 PM CDT DERMATOPATHOLOGY LABORATORY [...] characteristic determined by the Dermatopathology Laboratory at [facility], directed by Dr. Irais Vallecillo. These tests need not be, and therefore are not, approved by the [place] Food and Drug Administration. The tests are used for clinical purposes. Billing Codes Specimen Charges Stain Charges 03150 1 3:41 PM CDT DERMATOPATHOLOGY LABORATORY Embedded Images 3:41 PM CDT DERMATOPATHOLOGY LABORATORY Pathology/Cytolog y TISSUE SPECIMEN FROM SKIN / Unknown 07/31/2018 08/03/2018 10:59 AM CDT us Augusta Soriano MD LAB - PATHOLOGY/CYTOLOGY ORD ERABLES Final Result DERMATOPATHOLOGY LABORATORY [facility] - Department of Dermatology [address] [place] [address], 5th [place] [address], [facility] [phone] documented in this encounter Visit Diagnoses Not on filedocumented in this encounter Care Teams Menswear Salesperson Relationship Specialty Start Date End Date Karthik Shah MD [address] [place] [address] PCP - General Family Medicine 04/12/14 documented as of this encounter
--- OUTSIDE RECORDS SUMMARY | 2025-05-02 15:32 | XMS_ITS | Clinical Summary ---
Author Organization [facility] Address [address] [place] [address] Care Team Providers Care Instructor Ballroom Dancing Name Role Phone Yaima Munoz MD Unavailable [phone] Karthik Shah MD Primary Care Provider [phone] Stephanie Rodríguez MD Unavailable Allergies No known active allergies Medications lamoTRIgine [...] Encounters Date Type Department Care Team Description 04/26/2025 7:30 AM ECD [facility] [address] [place] [phone] Immune myopathy (Primary Dx) 04/25/2025 7:30 AM ECD [facility] [address] [place] [phone] Immune myopathy (Primary Dx) 03/29/2025 7:30 AM ECD [facility] [address] [place] [phone] Immune myopathy (Primary Dx) 03/28/2025 7:30 AM ECD [facility] [address] [place] [phone] Immune myopathy (Primary Dx) 03/01/2025 7:30 AM CDT [facility] [address] [place] [address] [phone] Halina Burt, SUSAN Immune myopathy (Primary Dx) 02/28/2025 7:30 AM CDT [facility] [address] [place] [address] Ave [address] [place] [phone] Marcy Flores, SUSAN Immune myopathy (Primary Dx) 02/03/2025 7:30 AM CDT [facility] [address] [place] [address] Ave [address] [place] [phone] Immune myopathy (Primary Dx) from Last 3 Months Immunizations Immunization Administration [...] the money to buy more. Never true 04/26/20 25 Within the past 12 months, t he food you bought just didn't last and you didn't have money to get more. Never true 04/26/2025 Personal Safety Answer Date Recorded Have you ever been in or are you currently in a harmful physical or emotional relationship or is someone making you feel afraid or unsafe? 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 on file Not on file Last Filed Vital Signs Vital Sign Reading Time Taken Comments Blood Pressure 115/60 04/26/2025 10:33 AM ECD Pulse 53 04/26/2025 10:33 AM ECD Temperature 36.2 C (97.1 F) 03/29/2025 7:20 AM ECD Respiratory Rate 15 03/29/2025 7:20 AM ECD Oxygen Saturation 96% 04/26/2025 10:33 AM ECD Inhaled Oxygen Concentration - - Weight 80.3 kg (177 lb) 04/26/2025 7:14 AM ECD Height 157.5 cm (5' 2) 04/26/2025 7:14 AM ECD Body Mass Index 32.37 04/26/2025 7:14 AM ECD Plan of Treatment Health Maintenance Due Date [...] Read Routine (OP Routine) 07/06/2024 12:49 PM ECD Screening mammogram, encounter for HEPATITIS PANEL, ACUTE STAT 06/09/2023 10:04 PM ECD DEXA AXIAL SKELETON BONE DENSITY 1 OR MORE SITES Schedule Routine, Read Routine (OP Routine) 07/22/2018 11:00 AM CDT Encounter for screening for osteoporosis Asymptomatic menopausal state from Last 3 Months or Most Recently Relevant to Health Maintenance Results * Screening Mammogram Bilateral W Sanjay (07/06/2024 12:49 PM ECD) Anatomical Region Laterality Modality Breast Bilateral Mammography Narrative 07/07/2024 10:31 AM ECD Mammogram Technique: Bilateral Digital Breast Tomosynthesis, Bilateral C-view 2D Screening mammogram. Views obtained: bilateral craniocaudal and bilateral mediolateral oblique. Computer Aided Detection was performed. Mammogram Findings: The present examination has been compared to prior imaging studies performed at on 06/05/2021, 05/28/2022 and 06/26/2023. There are [...] compared to prior imaging studies performed at on 06/05/2021, 05/28/2022 and 06/26/2023. There are scattered areas of fibroglandular density. There is no suspicious abnormality in either breast. Impression: There is no mammographic evidence of malignancy. Annual screening mammography is recommended. OVERALL FINAL ASSESSMENT: BI-RADS CATEGORY 1: Negative. us Self Screening Mammogram IMG MAMMO PROCEDURES Fi nal Result * Hepatitis panel, acute Blood (06/09/2023 10:04 PM ECD) Hep A IgM Nonreactive Nonreactive [facility] Hep B core IgM Nonreactive Nonreactive [facility] Hep C Ab Nonreactive Nonreactive [facility] Comment:Antibodies to HCV no t detected. Does NOT exclude the possibility of recent exposure to HCV. Current interpretive data was last revised on 22 HepBsAg Nonreactive Nonreactive [facility] Blood 06/09/2023 10:0 4 PM ECD 06/09/2023 10:15 PM ECD us Diogenes Salomon MD PhD LAB MICROBIOLOGY - GENERAL ORDERABLES Final Result [facility] [place] [address] * Dexa Axial Skeleton Bone Density 1 [...] Most Recently Relevant to Health Maintenance Insurance [facility] [employer] Address: [address] [place] [address] [facility] Advance Directives For more information, please contact: [phone] * Full Code (Latest Code Status on File) Date Activated Date Inactivated Comments 06/09/2023 6:34 PM 06/10/2023 11:15 PM Care Teams Instructor Ballroom Dancing Relationship Specialty Start Date End Date Karthik Shah MD [address] [place], [place] [id number] PCP - General Family Medicine 06/26/23 Yaima Munoz MD [address] [place] [address] Consulting Physician Neuromuscular Medicine 05/27/19 Stephanie Rodríguez MD [address] [place] [address] Referring Physician Gynecology 06/26/23
--- OUTSIDE RECORDS SUMMARY | 2025-05-02 15:32 | XMS_ITS | Encounter Summary ---
Author Organization [facility] Address [address] [place] [address] Phone Care Team Providers Care Die Cutter Operator Name Role Phone Karthik Shah MD Primary Care Provider [phone] Yaima Munoz MD Unavailable [phone] Karthik Shah MD Primary Care Provider [phone] Stephanie Rodríguez MD Unavailable [phone] Encounter Details Date Type Department Care Team (Late st Contact Info) Description 06/21/2021 Documentation [facility] Medicine Movement Disorders [address] [facility] 6th [place] [address] [place] [address] Yessenia Louis CMA Social History [...] on file Legal 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
--- OUTSIDE RECORDS SUMMARY | 2025-05-02 15:32 | XMS_ITS | Clinical Summary ---
Author Organization [facility] Address [address] [place] [address] Care Team Providers Care Brazer Induction Name Role Phone Karthik Shah MD Primary Care Provider [phone] Allergies No known active allergies Medications dicyclomine [...] Comments Blood Pressure 140/75 04/16/2023 3:07 PM SAFETY ASSISTANT Pulse 63 04/16/2023 3:07 PM SAFETY ASSISTANT Temperature 36.3 C (97.3 F) 04/16/2023 3:07 PM SAFETY ASSISTANT Respiratory Rate 18 04/16/2023 3:07 PM SAFETY ASSISTANT Oxygen Saturation 99% 04/16/2023 3:07 PM SAFETY ASSISTANT Inhaled Oxygen Concentration - - Weight 81.6 kg (180 lb) 04/16/2023 11:37 AM SAFETY ASSISTANT Height 157.5 cm (5' 2) 04/16/2023 11:37 AM SAFETY ASSISTANT Body Mass Index 32.92 04/16/2023 11:37 AM SAFETY ASSISTANT Plan of Treatment Health Maintenance Due Date [...] to complete this topic Insurance Care Teams Brazer Induction Relationship Specialty Start Date End Date Karthik Shah MD [address] [address] [facility] - General 03/31/13
[2025-05-02 16:00] LABS: Hematocrit 37.2 % (37.0-47.0); Hemoglobin 12.6 g/dL (12.0-15.0); Immature Granulocyte Percent A 0.3 % (0-0.5); Lymphocytes Absolute Auto 1.07 K/mm3 (0.9-3.2); Mean Corpuscular HGB Conc 33.9 g/dl (32-36); Mean Corpuscular Hemoglobin 31.7 pg (26-34); Mean Corpuscular Volume 93.7 fl (80-100); Nucleated Red Blood Cells Absolute Auto 0.000 K/mm3 (0.0-0.012); Nucleated Red Blood Cells Perc 0.0 % (0.0-0.2); Platelet Count Result 304 k/mm3 (150-375); Red Blood Count 3.97 M/mm3 (4.2-5.4); White Blood Count 3.8 K/mm3 (4.5-10.0)
[2025-05-02 16:10] LABS: Alanine Aminotransferase 13 U/L (6-35); Albumin Level 4.3 g/dL (3.5-5.1); Alkaline Phosphatase 131 U/L (38-126); Anion Gap 10 mmol/L (4-12); Aspartate Amino Transferase 30 U/L (14-36); Bilirubin,Total 0.8 mg/dL (0.2-1.3); Blood Urea Nitrogen 20 mg/dL (7-17); Calcium 9.3 mg/dL (8.4-10.2); Carbon Dioxide 25 mmol/L (22-30); Chloride 103 mmol/L (98-107); Estimated Glomerular Filt Rate 44; Glucose 90 mg/dL (65-110); Potassium 4.0 mmol/L (3.4-5.0); Sodium 138 mmol/L (137-145); Total Protein 9.0 g/dL (6.3-8.2)
[2025-05-02 17:53] LABS: Thyroid Stimulating Hormone 0.601 uIU/mL (0.465-4.680)
== END 2025-05-02 15:41 | disposition home or self-care (01) ==
PROVIDERS: PCP Family Medicine; Visit Provider Physician Assistant Medical
DX: R19.7 Diarrhea, unspecified (principal); R15.9 Full incontinence of feces; D64.9 Anemia, unspecified; N17.9 Acute kidney failure, unspecified; I10 Essential (primary) hypertension; D72.819 Decreased white blood cell count, unspecified; D72.828 Other elevated white blood cell count
CPT/HCPCS: 36415; 74176; 80053; 84443; 85025

== ENCOUNTER 2025-05-03 09:56 | Outpatient (CLI) | payer OTHER, SELFPAY ==
--- OUTSIDE RECORDS SUMMARY | 2025-05-03 10:20 | XMS_ITS | Clinical Summary ---
Author Organization [facility] Address [address] [place] [address] Care Team Providers Care Anger Control Counselor Name Role Phone Karthik Shah MD Primary Care Provider [phone] Allergies No known active allergies Medications dicyclomine [...] Comments Blood Pressure 140/75 04/16/2023 3:07 PM MANAGER COMPLETIONS Pulse 63 04/16/2023 3:07 PM MANAGER COMPLETIONS Temperature 36.3 C (97.3 F) 04/16/2023 3:07 PM MANAGER COMPLETIONS Respiratory Rate 18 04/16/2023 3:07 PM MANAGER COMPLETIONS Oxygen Saturation 99% 04/16/2023 3:07 PM MANAGER COMPLETIONS Inhaled Oxygen Concentration - - Weight 81.6 kg (180 lb) 04/16/2023 11:37 AM MANAGER COMPLETIONS Height 157.5 cm (5' 2) 04/16/2023 11:37 AM MANAGER COMPLETIONS Body Mass Index 32.92 04/16/2023 11:37 AM MANAGER COMPLETIONS Plan of Treatment Health Maintenance Due Date [...] to complete this topic Insurance Care Teams Anger Control Counselor Relationship Specialty Start Date End Date Karthik Shah MD [address] [place] [address] [facility] - General 03/31/13
--- OUTSIDE RECORDS SUMMARY | 2025-05-03 10:20 | XMS_ITS | Clinical Summary ---
Author Organization [email or web address] Address [address] [place] [address] Care Team Providers Care Retail Sales Associate Seasonal Name Role Phone Karthik Shah MD Primary Care Provider [phone] Source Comments [facility],non-owned Affiliates and Associated Physician Practices is amultiple site organization consisting of ambulatory clinics and hospital sitesin [place], [place], [place] and [place]. This disclosure is being madepursuant to the Care Everywhere program and may not contain all information available regarding this patient. Last updated 18.[facility] Allergies No known active allergies Medications * [...] on file Legal Sex Female 6:21 AM NURSING TEACHER Gender Identity Not on file Sexual Orientation Not on file Last Filed Vital Signs Vital Sign Reading Time Taken Comments Blood Pressure 128/80 06/12/2019 10:45 AM NURSING TEACHER Pulse 79 06/12/2019 10:45 AM NURSING TEACHER Temperature 37 C (98.6 F) 06/12/2019 10:45 AM NURSING TEACHER Respiratory Rate 16 06/12/2019 10:45 AM NURSING TEACHER Oxygen Saturation 99% 06/12/2019 10:45 AM NURSING TEACHER Inhaled Oxygen Concentration - - Weight 75.8 kg (167 lb) 06/12/2019 10:45 AM NURSING TEACHER Height 154.9 cm (5' 1) 06/12/2019 10:45 AM NURSING TEACHER Body Mass Index 31.55 06/12/2019 10:45 AM NURSING TEACHER Plan of Treatment Health Maintenance Due Date [...] age to complete this topic Insurance [facility] CIG[employer] Care Teams Retail Sales Associate Seasonal Relationship Specialty Start Date End Date Karthik Shah MD [address] [place] [address] PCP - General Family Medicine 04/12/14
--- OUTSIDE RECORDS SUMMARY | 2025-05-03 10:20 | XMS_ITS | Encounter Summary ---
Author Organization [facility] Health Address [address] [facility] [place] [address] Care Team Providers Care Staff Mine Warfare Officer Name Role Phone Karthik Shah MD Primary Care Provider [phone] Encounter Details Date Type Department Care Team (Late st Contact Info) Description 08/03/2018 Lab Requisition [facility] Care DermPath Lab [address] 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 Gender Identity Not on file Sexual Orientation Not on file documented as of this encounter Plan of Treatment Not on file documented as of this encounter Procedures Procedure Name Priority Date/Time Associated Diagnosis Comments DERMATOPATHOLOGY Routine 07/31/2018 12:0 0 AM CDT documented in this encounter Results * DERMATOPATHOLOGY (07/31/2018 12:00 AM CDT) Case Report Dermatopathology Report Case: [id number] Authorizing Provider: Augusta Soriano MD Collected: 07/31/2018 12:00 AM Pathologist: Brian Vallecillo MD Received: 08/03/2018 10:59 AM Specimen: Skin, right calf 3:41 PM CDT DERMATOPATHOLOGY LABORATORY Final Diagnosis Specimen A. 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 [place] scaly papule. 3:41 PM CDT DERMATOPATHOLOGY LABORATORY Gross Description Specimen A: Received is one formalin filled container labeled with the patient's name and designated right calf. The specimen consists of a shave measuring [id number]. Jar 0. 3:41 PM CDT DERMATOPATHOLOGY LABORATORY [...] characteristic determined by the Dermatopathology Laboratory at [facility], directed by Dr. Irais Vallecillo. These tests need not be, and therefore are not, approved by the [place] Food and Drug Administration. The tests are used for clinical purposes. Billing Codes Specimen Charges Stain Charges 55422 1 3:41 PM CDT DERMATOPATHOLOGY LABORATORY Embedded Images 3:41 PM CDT DERMATOPATHOLOGY LABORATORY Pathology/Cytolog y TISSUE SPECIMEN FROM SKIN / Unknown 07/31/2018 08/03/2018 10:59 AM CDT us Augusta Soriano MD LAB - PATHOLOGY/CYTOLOGY ORD ERABLES Final Result DERMATOPATHOLOGY LABORATORY [facility] - Department of Dermatology [address] [place] [address], 5th [place] [address], [facility] [phone] documented in this encounter Visit Diagnoses Not on filedocumented in this encounter Care Teams Staff Mine Warfare Officer Relationship Specialty Start Date End Date Karthik Shah MD [address] [place] [address] PCP - General Family Medicine 04/12/14 documented as of this encounter
--- OUTSIDE RECORDS SUMMARY | 2025-05-03 10:20 | XMS_ITS | Encounter Summary ---
Author Organization [facility] Address [address] [place] [address] Phone Care Team Providers Care Finish Production Manager Name Role Phone Karthik Shah MD Primary Care Provider [phone] Yaima Munoz MD Unavailable [phone] Karthik Shah MD Primary Care Provider [phone] Stephanie Rodríguez MD Unavailable [phone] Reason for Visit * Reason Onset Date [...] (Late st Contact Info) Description 05/12/2023 Telephone [facility] [place] Neuro Muscle [address] [facility] 6th [place] [address] [place] [address] Nevaeh Colón, [place] and [...] file Legal Sex Female 2:12 AM MANAGER BANK Gender Identity Not on file Sexual Orientation Not on file 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 Not on file Not on file documented as of this encounter Plan of Treatment Not on file documented as of this encounter Visit Diagnoses Not on filedocumented in this encounter Care Teams Finish Production Manager Relationship Specialty Start Date End Date Karthik Shah MD PCP - General 10/05/15 06/25/23 Karthik Shah MD [address] [place] [address] PCP - General Family Medicine 06/26/23 Yaima Munoz MD [address] [place] [address] Consulting Physician Neuromuscular Medicine 05/27/19 Stephanie Rodríguez MD [address] [facility] [address] [place], [place] [id number] Referring Physician Gynecology 06/26/23 documented as of this encounter
--- OUTSIDE RECORDS SUMMARY | 2025-05-03 10:20 | XMS_ITS | Clinical Summary ---
Author Organization [facility] Address [address] [place] [address] Care Team Providers Care Gang Vibrator Operator Name Role Phone Yaima Munoz MD Unavailable [phone] Karthik Shah MD Primary Care Provider [phone] Stephanie Rodríguez MD Unavailable [phone] Allergies No known active allergies Medications lamoTRIgine [...] Department Care Team Description 04/26/2025 7:30 AM SENIOR BIOINFORMATICS SPECIALIST Infusion [facility] [address] [place] [phone] Immune myopathy (Primary Dx) 04/25/2025 7:30 AM SENIOR BIOINFORMATICS SPECIALIST Infusion [facility] [address] [place] [phone] Immune myopathy (Primary Dx) 03/29/2025 7:30 AM SENIOR BIOINFORMATICS SPECIALIST Infusion [facility] [address] [place] [phone] Immune myopathy (Primary Dx) 03/28/2025 7:30 AM SENIOR BIOINFORMATICS SPECIALIST Infusion [facility] [address] [place] [phone] Immune myopathy (Primary Dx) 03/01/2025 7:30 AM CDT Infusion [facility] [address] [place] [address] [address] Halina Burt, SUSAN Immune myopathy (Primary Dx) 02/28/2025 7:30 AM CDT Infusion [facility] [address] [place] [address] [address] [place] [phone] Marcy Flores, SUSAN Immune myopathy (Primary Dx) 02/03/2025 7:30 AM CDT Infusion [facility] [address] [place] [address] [address] [place] [phone] Immune myopathy (Primary Dx) from Last 3 [...] on file Legal Sex Female 2:12 AM SENIOR BIOINFORMATICS SPECIALIST Gender Identity Not on file Sexual Orientation Not on file 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 Not on file Not on file Last Filed Vital Signs Vital Sign Reading Time Taken Comments Blood Pressure 115/60 04/26/2025 10:33 AM SENIOR BIOINFORMATICS SPECIALIST Pulse 53 04/26/2025 10:33 AM SENIOR BIOINFORMATICS SPECIALIST Temperature 36.2 C (97.1 F) 03/29/2025 7:20 AM SENIOR BIOINFORMATICS SPECIALIST Respiratory Rate 15 03/29/2025 7:20 AM SENIOR BIOINFORMATICS SPECIALIST Oxygen Saturation 96% 04/26/2025 10:33 AM SENIOR BIOINFORMATICS SPECIALIST Inhaled Oxygen Concentration - - Weight 80.3 kg (177 lb) 04/26/2025 7:14 AM SENIOR BIOINFORMATICS SPECIALIST Height 157.5 cm (5' 2) 04/26/2025 7:14 AM SENIOR BIOINFORMATICS SPECIALIST Body Mass Index 32.37 04/26/2025 7:14 AM SENIOR BIOINFORMATICS SPECIALIST Plan of Treatment Health Maintenance Due Date [...] Read Routine (OP Routine) 07/06/2024 12:49 PM SENIOR BIOINFORMATICS SPECIALIST Screening mammogram, encounter for HEPATITIS PANEL, ACUTE STAT 06/09/2023 10:04 PM SENIOR BIOINFORMATICS SPECIALIST DEXA AXIAL SKELETON BONE DENSITY 1 OR MORE SITES Schedule Routine, Read Routine (OP Routine) 07/22/2018 11:00 AM CDT Encounter for screening for osteoporosis Asymptomatic menopausal state from Last 3 Months or Most Recently Relevant to Health Maintenance Results * Screening Mammogram Bilateral W Sanjay (07/06/2024 12:49 PM SENIOR BIOINFORMATICS SPECIALIST) Anatomical Region Laterality Modality Breast Bilateral Mammography Narrative 07/07/2024 10:31 AM SENIOR BIOINFORMATICS SPECIALIST Mammogram Technique: Bilateral Digital Breast Tomosynthesis, Bilateral C-view 2D Screening mammogram. Views obtained: bilateral craniocaudal and bilateral mediolateral oblique. Computer Aided Detection was performed. Mammogram Findings: The present examination has been compared to prior imaging studies performed at [facility] on 06/05/2021, 05/28/2022 and 06/26/2023. There [...] compared to prior imaging studies performed at [facility] on 06/05/2021, 05/28/2022 and 06/26/2023. There are scattered areas of fibroglandular density. There is no suspicious abnormality in either breast. Impression: There is no mammographic evidence of malignancy. Annual screening mammography is recommended. OVERALL FINAL ASSESSMENT: BI-RADS CATEGORY 1: Negative. us Self Screening Mammogram IMG MAMMO PROCEDURES Fi nal Result * Hepatitis panel, acute Blood (06/09/2023 10:04 PM SENIOR BIOINFORMATICS SPECIALIST) Hep A IgM Nonreactive Nonreactive [facility] Hep B core IgM Nonreactive Nonreactive [facility] Hep C Ab Nonreactive Nonreactive [facility] Comment:Antibodies to HCV no t detected. Does NOT exclude the possibility of recent exposure to HCV. Current interpretive data was last revised on 22 HepBsAg Nonreactive Nonreactive [facility] Blood 06/09/2023 10:0 4 PM SENIOR BIOINFORMATICS SPECIALIST 06/09/2023 10:15 PM SENIOR BIOINFORMATICS SPECIALIST us Diogenes Salomon MD PhD LAB MICROBIOLOGY - GENERAL ORDERABLES Final Result [facility] [place] [address] * Dexa Axial Skeleton Bone Density 1 [...] Recently Relevant to Health Maintenance Insurance [facility] [employer] Address: [address] [place] [address] [facility] Advance Directives For more information, please contact: [phone] * Full Code (Latest Code Status on File) Date Activated Date Inactivated Comments 06/09/2023 6:34 PM 06/10/2023 11:15 PM Care Teams Gang Vibrator Operator Relationship Specialty Start Date End Date Karthik Shah MD [address] [place], [place] [id number] PCP - General Family Medicine 06/26/23 Yaima Munoz MD [address] [place] [address] Consulting Physician Neuromuscular Medicine 05/27/19 Stephanie Rodríguez MD [address] [place] [address] Referring Physician Gynecology 06/26/23
--- OUTSIDE RECORDS SUMMARY | 2025-05-03 10:20 | XMS_ITS | Encounter Summary ---
Author Organization [facility] Address [address] [place] [address] Phone Care Team Providers Care Headliner Installer Name Role Phone Karthik Shah MD Primary Care Provider [phone] Yaima Munoz MD Unavailable [phone] Karthik Shah MD Primary Care Provider [phone] Stephanie Rodríguez MD Unavailable [phone] Encounter Details Date Type Department Care Team (Late st Contact Info) Description 06/21/2021 Documentation [facility] Medicine Movement Disorders [address] [facility] 6th [place] [address] [place] [address] Yessenia Louis CMA Social History [...] on file Legal Sex Female 2:12 AM SHAKE TABLE OPERATOR Gender Identity Not on file Sexual [...] documented as of this encounter Care Teams Headliner Installer Relationship Specialty Start Date End Date Karthik Shah MD PCP - General 10/05/15 06/25/23 Karth[place] [address] [place] [address] PCP - General Family Medicine 06/26/23 Yaima Munoz MD [address] [place] [address] Consulting Physician Neuromuscular Medicine 05/27/19 Stephanie Rodríguez MD [address] [facility] [address] [place] [address] Referring Physician Gynecology 06/26/23 documented as of this encounter
[2025-05-03 11:00] LABS: Free T4 Free Thyroxine 1.61 ng/dL (0.78-2.19)
[2025-05-04 07:09] LABS: Cytomegalovirus (CMV) Ab, IgG >10.00 U/mL (0.00-0.59); Cytomegalovirus (CMV) Ab, IgM <30.0 AU/mL (0.0-29.9)
[2025-05-04 13:08] LABS: EBV Nuclear Antigen Ab, IgG >600.0 U/mL (0.0-17.9)
== END 2025-05-03 09:57 | disposition home or self-care (01) ==
PROVIDERS: PCP Family Medicine; Visit Provider Physician Assistant Medical
DX: D72.819 Decreased white blood cell count, unspecified (principal); D72.828 Other elevated white blood cell count; I10 Essential (primary) hypertension
CPT/HCPCS: 36415; 84439; 86644; 86645; 86664; 86665